=== PATIENT | female | born 1950 | race Asian ===

== ENCOUNTER 2019-06-30 03:23 | Inpatient (IN) | payer OTHER, BC ==
[~2019-06-30] VITALS: Ht 157.5 cm; Wt 67.1 kg
[2019-06-30] VITALS (71 sets, daily range): BP systolic 83–159; BP diastolic 59–98
--- NOTE | 2019-06-30 03:25 | NUR ---
BIBA TO BED #3
--- NOTE | 2019-06-30 03:30 | NUR ---
61 Y/O FEMALE BIBA C/O SZ. HAD TOTAL 4 EPISODES OF SZ. LAST ACT NORMAL WAS 3HRS AGO ACCORDING TO . UNKNOWN PMH. UNKNOWN ALLEGIES. 2.5MG OF VERSAD GIVEN AT AMBULANCE. ATIVAN 2MG IM ADMIN AT 0330. 22 GAUGE IV ON RIGHT HAND 0332. IO ON LEFT TIBIA LEG STARTED BY DR. CH AT 0335. ATIVAN 2MG IVP ADMIN AT 0336. ETOMIDATE 20MG ADMIN AT 0337. SUCC 120MG ADMIN AT 0338. INTUBATED 7.5 TUBE SIZE, 21CM AT LIPS AT 0341 BILAT CHEST SOUNDS NOTED, STAT XR ORDERED. OG TUBE APPLIED AT 0350. ERMD STARTING CENTRAL LINE AT 0350. PROFOLOL STARTED AT 0353. BP PRIOR IS 159/79. 5MCG/MIN. KEPPRA 1G STARTED ON RIGHT HAND AT 0358. RATE 220ML/HR IN 100ML BAG
[2019-06-30] MEDS ORDERED: LORazepam 2 MG/ML VIAL ONE (03:34)
--- NOTE | 2019-06-30 04:03 | NUR ---
CENTRAL LINE IN PLACED ON RIGHT IJ.
--- NOTE | 2019-06-30 04:04 | NUR ---
BLOOD COLLECTED FROM CENTRAL LINE.
[2019-06-30] MEDS ORDERED: NACL 0.9% 1,000 ML IV SCH (04:17)
[2019-06-30] MEDS ORDERED: VANCOMYCIN 1,000 MG in DEXTROSE 5% 250 ML IV ONE (04:20)
[2019-06-30] MEDS ORDERED: ETOMIDATE 20 MG/10 ML VIAL IVP ONE (04:20)
[2019-06-30] MEDS ORDERED: PIPERACILLIN/TAZOBACTAM 4.5 GM in DEXTROSE 5% 100 ML IV ONE (04:20)
[2019-06-30] MEDS ORDERED: SUCCINYLCHOLINE CHLORIDE 200 MG/10 ML VIAL IVP ONE (04:20)
[2019-06-30] MEDS ORDERED: LORazepam 2 MG/ML VIAL IVP ONE (04:20)
[2019-06-30] MEDS ORDERED: LORazepam 2 MG/ML VIAL IM ONE (04:20)
[2019-06-30] MEDS ORDERED: PROPOFOL 1000 MG/100 ML PREMIX 100 ML IV ONE (04:20)
[2019-06-30] MEDS ORDERED: levETIRAcetam 1,000 MG in NACL 0.9% 100 ML IV ONE (04:20)
--- NOTE | 2019-06-30 04:20 | NUR ---
BP 131/90. PROFOLOL AT 5MCG/MIN.
[2019-06-30] MEDS ORDERED: DEXT 5% / NACL 0.45% 1,000 ML IV SCH (04:49)
[2019-06-30] MEDS ORDERED: ONDANSETRON 4 MG/2 ML VIAL IVP PRN (04:50)
--- NOTE | 2019-06-30 05:00 | NUR ---
VALENCIA 16 FR INSERTED. 200CC OF CLEAR URINE CAME OUT.
[2019-06-30] MEDS ORDERED: PIPERACILLIN/TAZOBACTAM 2.25 GM VIAL IV ONE (05:24)
[2019-06-30 05:28] LABS: BASOPHILS % (AUTO) 0.4 % (0.0-2.0); EOSINOPHILS # (AUTO) 0.1 K/uL (0-0.4); EOSINOPHILS % (AUTO) 2.6 % (0.0-4.0); HEMATOCRIT 41.8 % (36-48); HEMOGLOBIN 12.7 g/dL (12.0-16.0); LYMPHOCYTES # (AUTO) 1.3 K/uL (2.5-16.5); LYMPHOCYTES % (AUTO) 29.9 % (20.5-51.1); MEAN CORPUSCULAR HEMOGLOBIN 22 pg (27-31); MEAN CORPUSCULAR HGB CONC 31 g/dL (33-37); MEAN CORPUSCULAR VOLUME 70.9 fL (80-94); MONOCYTES # (AUTO) 0.3 K/uL (0.8-1.0); MONOCYTES % (AUTO) 8.1 % (1.7-9.3); NEUTROPHILS # (AUTO) 2.5 K/uL (1.8-7.7); PLATELET COUNT (AUTO) 249 K/uL (140-450); RED CELL DISTRIBUTION WIDTH 15.3 % (11.6-13.7); WHITE BLOOD COUNT (AUTO) 4.2 K/uL (4.8-10.8)
[2019-06-30 05:32] LABS: APPEARANCE,URINE HAZY (CLEAR); BILIRUBIN,URINE 1+ (NEGATIVE); BLOOD, URINE TRACE-I (NEGATIVE); COLOR,URINE YELLOW (YELLOW); LEUKOCYTE ESTERASE ,URINE TRACE (NEGATIVE); NITRITE, URINE POSITIVE (NEGATIVE); UGLUCOSE NEGATIVE (NEGATIVE)
[2019-06-30 05:47] LABS: ANION GAP 14.9 (8-16); CARBON DIOXIDE 28.1 mmol/L (21-32); CREATININE 0.8 mg/dL (0.6-1.3)
[2019-06-30] MEDS ORDERED: VANCOMYCIN 1,000 MG VIAL ONE (05:52)
[2019-06-30] MEDS ORDERED: POTASSIUM CHL 40 MEQ/ D5-1/2NS 1,000 ML IV ONE (06:00)
[2019-06-30] MEDS ORDERED: MAG SULF 2000 MG/WATER PREMIX 50 ML IV ONE (06:00)
[2019-06-30 06:04] LABS: ALBUMIN 2.3 g/dL (3.4-5.0); AMYLASE 109 U/L (25-115); ANION GAP 13.3 (8-16); ASPARTATE AMINOTRANSFERASE 20 U/L (15-37); CARBON DIOXIDE 28.7 mmol/L (21-32); CHLORIDE 106 mmol/L (98-107); CREATININE 0.8 mg/dL (0.6-1.3); GFR ARICAN-AMERICAN 92 mL/min (>90); GLUCOSE 132 mg/dL (74-106); LIPASE 431 U/L (73-393); RBC,URINE 0-5 /HPF (0-5); SODIUM SERUM 146 mmol/L (136-145); TOTAL BILIRUBIN 0.4 mg/dL (0.0-1.0); UREA NITROGEN, BLOOD 12 mg/dL (7-18)
--- NOTE | 2019-06-30 06:07 | NUR ---
PT TAKEN TO CT WITH RT AND RN ON [facility] HOOKED UP TO TRANSPORT MONITOR
[2019-06-30 06:10] LABS: PHENYTOIN (DILANTIN) < 0.5 ug/ml (10.0-20.0); SALICYLATE < 2.8 mg/dL (2.8-20.0)
[2019-06-30 06:11] LABS: ACETAMINOPHEN < 0.5 ug/ml (10-30)
[2019-06-30 06:13] LABS: CREATINE KINASE MB 0.9 ng/mL (0-3.6); PROTHROMBIN TIME 10.4 secs (10.8-13.4)
[2019-06-30 06:26] LABS: PHENOBARBITAL < 1 ug/ml (15-40)
[2019-06-30] MEDS ORDERED: GABA300C PO (06:42)
[2019-06-30] MEDS ORDERED: ROSU10TA1 PO (06:42)
[2019-06-30] MEDS ORDERED: CLON2TAB PO (06:42)
[2019-06-30] MEDS ORDERED: BACL10TA4 PO (06:42)
--- NOTE | 2019-06-30 06:50 | NUR ---
XR CONFIRM NGT [PLACEMENT. STARTED ON LOW INTERMITTENT SUCTION.
[2019-06-30 06:55] LABS: CHOL/HDL RATIO 5.6 (1-4.5); MAGNESIUM 1.6 mg/dL (1.8-2.4); PHOSPHORUS 2.5 mg/dL (2.5-4.9); THYROID STIMULATING HORMONE 3.23 uIU/mL (0.34-3.74)
[2019-06-30] MEDS ORDERED: PRED20TA5 PO (07:08)
[2019-06-30] MEDS ORDERED: HYDR-5122 PO (07:08)
--- NOTE | 2019-06-30 07:20 | NUR ---
Patient will be admitted to care of DR. PALACIO. Admited to ICU . Will go to room 5. Belongings list completed. Report to JAVY MEDEROS.
--- NOTE | 2019-06-30 07:37 | NUR ---
ADMITTED PT FROM ER TO ICU BY ITALO. PT CLOSED EYES. BEDSIDE MONITOR SHOWS ST 115S. PT ETT TO VENT WITH SETTING FIO2 30%. PUPILS REACTIVE. GAG REFLEX PRESENT. PT HAS CENTRAL LINE TO [facility] TLC RUNNING PROPOFOL AT 5 MCG/KG/ MIN BASED ON DRY WEIGHT 65.7 KG, RASS-3. D5 1/2 NS KCL 40 MEQ AT 100 CC/HR AND VACOCIN 1G IN D5 @ 165 CC/HR. PT HAS NG TUBE TO RIGHT NARES, F/C IN PLACE WITH YELLOW URINE NOTED. PT UNABLE TO MOVE HER EXTREMITIES. RIGHT FOOT DROP NOTED. HOB ELEVATED IN 30 DEGREES . WILL CONTINUE TO MONITOR. Addendum: 06/30/19 at 1352 by Justa Servin RN 5 MCG/KG/ MIN=1.97 CC/HR
[2019-06-30] MEDS ORDERED: LORazepam 2 MG/ML VIAL IM/IVP PRN (08:10)
[2019-06-30] MEDS: DEXT 5% /NACL 0.9% 1,000 ML IV SCH ×2 (08:10→21:18)
[2019-06-30 08:28] LABS: BARBITURATE, URINE NEG. ng/ml (NEG <=200); BENZODIAZEPINE, URINE POS. ng/mL (NEG <=200); CANNABINOID, URINE NEG. ng/mL (NEG <=50); COCAINE, URINE NEG. ng/mL (NEG <=300); OPIATE, URINE NEG. ng/mL (NEG <=2000); PHENCYCLIDINE SCREEN,URINE NEG. ng/mL (NEG <=25)
[2019-06-30] MEDS ORDERED: KCL 20 MEQ/WATER INJ PREMIX 200 ML IV SCH ×2 (08:45→16:40)
--- NOTE | 2019-06-30 09:00 | NUR ---
REMOVED IO TO LEFT KNEE, TIP INTACT. COVERED WITH BANDAGE.
[2019-06-30] MEDS: DOCUSATE SODIUM 100 MG GELCAP PO SCH ×2 (10:05→21:00)
[2019-06-30] MEDS: FAMOTIDINE 20 MG TAB PO SCH (10:06)
[2019-06-30] MEDS: ATORVASTATIN 20 MG TAB PO SCH (10:06)
--- NOTE | 2019-06-30 10:40 | NUR ---
NOTIFIED PT DOES NOT HAVE DVT PROPHYLAXIS BUT PT HAS SCDs IN PLACE. DR. GOODMAN STATED SCDs are fine.
[2019-06-30 10:46] LABS: PROTHROMBIN TIME 10.2 secs (10.8-13.4)
[2019-06-30] MEDS: PIPERACILLIN/TAZOBACTAM 3.375 GM in DEXTROSE 5% 50 ML IV SCH ×3 (11:25→23:19)
--- NOTE | 2019-06-30 12:02 | NUR ---
PATIENT HAS BEEN SCREENED AND CATEGORIZED HIGH NUTRITION RISK. PATIENT WILL BE SEEN WITHIN 1-2 DAYS OF ADMISSION. 07/01/2019 VIKY YA MBA, RD
--- NOTE | 2019-06-30 13:37 | NUR ---
CALLED CT [phone], NO RESPONSE.
--- NOTE | 2019-06-30 13:58 | NUR ---
06/30/2019 RD INITIAL ASSESSMENT COMPLETED PLEASE REFER TO NUTRITION ASSESSMENT UNDER CARE ACTIVITY FOR ESTIMATED NUTRITIONAL NEEDS. RD RECOMMENDATIONS: 1. RECOMMEND TF VITAL AF 1.2@50MLS/HR (PROVIDES 1440KCALS, 90G PROTEIN - SUFFICIENT TO MEET 100% ESTIMATED NEEDS). 2. RECOMMEND START TF VITAL AF 1.2@30MLS/HR AND ADVANCE, TOLERATED, BY 10MLS/HR Q8HRS TO REACH GOAL RATE OF 50MLS/HR. 3. RECOMMEND WATER FLUSH OF 100MLS Q6HRS 4. FOLLOW UP 2-3 DAYS; HIGH RISK VIKY YA MBA, RD
[2019-06-30 14:35] LABS: ANION GAP 10.3 (8-16); CARBON DIOXIDE 27.9 mmol/L (21-32); CREATININE 0.7 mg/dL (0.6-1.3)
[2019-06-30 14:44] LABS: POTASSIUM 2.2 mmol/L (3.5-5.1)
--- NOTE | 2019-06-30 15:12 | NUR ---
DR. PATTON NEUROLOGIST AT BEDSIDE TO CHECK PT. UPDATED PT'S CONDITION. RT JOSEPH ALSO AT BEDSIDE. STARTED SEDATION VACATION. PER PT IS VERY CALM AFTER PROPOFOL TURNED OFF. SO WE JUST WAIT FOR EEG, WHEN EEG DONE, IF REPORT SHOWS NORMAL. THEN WE TURN OFF PROPOFOL, WILL CARRY OUT.
--- NOTE | 2019-06-30 15:30 | NUR ---
DR. PATTON AND DR. NEAL HAD CONVERSATION REGARDING CT REPORT. NOTIFIED DR. NEAL PT HAS URINE OUTPUT 300 CC SO FAR.
--- NOTE | 2019-06-30 15:43 | NUR ---
CALLED CT [phone], NO ANSWER.
--- NOTE | 2019-06-30 16:30 | NUR ---
LEFT UNIT AT 1600 AND CAME BACK AT [address] WITHOUT INCIDENT. ACCOMPANIED WITH RT, PARTS WASHER AND RN.
[2019-06-30] MEDS ORDERED: LIDOCAINE 2% 100 MG/5 ML SYR IVP ONE (18:15)
--- NOTE | 2019-06-30 18:20 | NUR ---
LIDOCAINE 2% 5 CC WAS GIVEN BY FOR CHEST TUBE INJECTION.
--- NOTE | 2019-06-30 18:25 | NUR ---
MD FROM ER STARTED TO INSERT CHEST TUBE.
--- NOTE | 2019-06-30 19:02 | NUR ---
Received pt stable on vent support at documented settings, suctioned small thick white yellow secretions, no resp distress or SOB noted at this time, found 7.5 ETT secured at 23 cm at the lip, alarms set and audible, ambu bag at bedside, vent wiped down and plugged into red outlet, cont pulse ox on, will cont to monitor.
--- NOTE | 2019-06-30 19:15 | NUR ---
rt at bedside. notified him that patient has dried blood around mouth and ng tube has small amount of fresh blood in suction tube and in right nares. softly placed inch of suction into mouth orally . will continue to monitor. when deep suctioned , no blood noted.
--- NOTE | 2019-06-30 19:19 | NUR ---
ENDORSED PT TO PM SHIFT RN.
--- NOTE | 2019-06-30 19:20 | NUR ---
change of shift report given at bedside by day nurse. ett to vent. settings [id number]. dry weight 65.7kg. rass -3. patient sedated on propofol 5mcg/kg/min (1.95ml/hr) through right ij central line triple lumen. fluids running is d5 ns 80 ml /hr when endorsed. ng via right nares. attached to vital af 1.2 20 with h20 flush 50 q4h per day shift nurse. states replaced potassium. chest tube inserted right side 30 minutes ago. ativan given. states foot drop. ct done. xray done. states no pe. on regular suction. lungs diminished. regular hr. bowel sounds active all 4 quad. f/c scds present. perrl brisk rxn. afebrile. -. [facility] specialist saw patient. bp low. will continue to monitor. no sob or distress noted.
--- NOTE | 2019-06-30 20:59 | NUR ---
called resident jose x2 about colace being po and patient intubated. will continue to f/u. held at this time.
[2019-06-30] MEDS: levETIRAcetam 1,000 MG in NACL 0.9% 100 ML IV SCH (21:14)
--- NOTE | 2019-06-30 22:25 | NUR ---
lab at bedside
[2019-06-30 22:51] LABS: ANION GAP 11.5 (8-16); CARBON DIOXIDE 27.3 mmol/L (21-32); CREATININE 0.8 mg/dL (0.6-1.3)
[2019-06-30 22:59] LABS: POTASSIUM 1.8 mmol/L (3.5-5.1)
--- NOTE | 2019-06-30 22:59 | NUR ---
potassium called from .8. notified jose [phone]. replacement ordered. will follow up. notified that i tried calling her x2 about the gel colace capsule. states ok to hold.
[2019-06-30] MEDS ORDERED: KCL 20 MEQ/WATER INJ PREMIX 200 ML IV ONE (23:30)
[2019-07-01] VITALS (106 sets, daily range): BP systolic 80–120; BP diastolic 51–88
--- NOTE | 2019-07-01 00:30 | NUR ---
charge nurse took influe a and b swab and given to lab
--- NOTE | 2019-07-01 00:34 | NUR ---
called md about low bp in sbp in 80s-90s. no answer. will continue to call back.
--- NOTE | 2019-07-01 00:54 | NUR ---
jose at bedside. notified of low bp. eyes open to md. asked if we should keep sbp above a level or monitor MAP above 60? md states MAP is better to monitor. will continue to monitor.
--- NOTE | 2019-07-01 02:30 | NUR ---
dr garcia came per sienna nurse at bedsides and gave charge nurse orders while on lunch break. will f/u with charge nurse. chagre nurse started ns bolus. will continue to monitor.
[2019-07-01] MEDS ORDERED: NACL 0.9% 1,000 ML IV ONE (03:05)
--- NOTE | 2019-07-01 04:45 | NUR ---
patient given morning care. skin dry and had dried dirt present. cleaned patient with charge nurse. patient had catheter care and changed patients bandage/secured more of chest tube dressing . clamps at bedside. no leaking noted. patient tolerated well. oral care given. afebrile. no sob or s/s of distress noted. patient lying in bed. sedated. no injury noted. bed changed.
--- NOTE | 2019-07-01 05:34 | NUR ---
lab at bedside
[2019-07-01] MEDS: PIPERACILLIN/TAZOBACTAM 3.375 GM in DEXTROSE 5% 50 ML IV SCH ×3 (05:55→17:24)
--- NOTE | 2019-07-01 07:16 | NUR ---
endorsed to day shift to f/ u with md about eeg. same nurse following from yesterdays day shift. states specialist did not need feel it was necessary to do eeg per day shift nurse. asked nurse to f/u. endorsed critical k 1.8 and replaced. lab drawn. endorsed dry skin. cleaned and changed bed and bandage.
[2019-07-01 07:21] LABS: BASOPHILS % (AUTO) 0.1 % (0.0-2.0); EOSINOPHILS % (AUTO) 0.3 % (0.0-4.0); HEMATOCRIT 33.5 % (36-48); HEMOGLOBIN 10.3 g/dL (12.0-16.0); LYMPHOCYTES # (AUTO) 1.6 K/uL (2.5-16.5); LYMPHOCYTES % (AUTO) 17.9 % (20.5-51.1); MEAN CORPUSCULAR HEMOGLOBIN 22 pg (27-31); MEAN CORPUSCULAR HGB CONC 31 g/dL (33-37); MEAN CORPUSCULAR VOLUME 70.1 fL (80-94); MONOCYTES # (AUTO) 0.6 K/uL (0.8-1.0); MONOCYTES % (AUTO) 6.7 % (1.7-9.3); NEUTROPHILS # (AUTO) 6.8 K/uL (1.8-7.7); PLATELET COUNT (AUTO) 192 K/uL (140-450); RED BLOOD CELL COUNT(AUTO) 4.78 MIL/uL (4.20-5.40); RED CELL DISTRIBUTION WIDTH 15.4 % (11.6-13.7); WHITE BLOOD COUNT (AUTO) 9.1 K/uL (4.8-10.8)
--- NOTE | 2019-07-01 07:25 | NUR ---
RECEIVED REPORT FROM PM SHIFT. BEDSIDE MONITOR SHOWS SR 90S, PUPILS ACTIVE. ETT TO VENT WITH SETTING FIO2=30%, TV 400, AC 14, PEEP 5. O2 SATS 100 %, NO S/S OF RESPIRATORY DISTRESS NOTED. PT HAS CENTRAL LINE TO RIGHT IJ TLC WITH PROPOFOL AT 5 MCG/KG/MIN BASED ON DRY WEIGHT 65.7 KG, RASS -3. PT OPENS EYES WHEN ASSESS PT BUT FALL ASLEEP IMMEDIATELY. PT ALSO HAS IV FLUID D5 0.9 NS AT 100 CC/HR. CHEST TUBE IN PLACE, F/C IN PLACE. SCD IN PLACE, PT HAS EDEMA TO BOTH LOWER AND UPPER EXTREMITIES. WILL CONTINUE TO MONITOR.
--- NOTE | 2019-07-01 07:25 | NUR ---
rec'd pt on carescape vent setting ac 14 vt400 peep 5 fio2 30% alarms on and audible and ambu bag at hob vent is plugged into red outlet, sxn pt scant amt of thin clear secetions, b\s are clear bilaterally, pt is orally intubated with 7.5 et tube secured with anchor fast at 23cm pt is resting
[2019-07-01 07:29] LABS: ANION GAP 12.5 (8-16); CREATININE 0.7 mg/dL (0.6-1.3)
[2019-07-01 07:36] LABS: MAGNESIUM 1.7 mg/dL (1.8-2.4); PHOSPHORUS 1.2 mg/dL (2.5-4.9)
[2019-07-01 07:47] LABS: POTASSIUM 2.5 mmol/L (3.5-5.1)
--- NOTE | 2019-07-01 08:00 | NUR ---
tube feeding residual checked, zero. pt on vital AF 1.2 AT 20 CC/HR. INCREASED TO 30 CC/HR. PLACEMENT CONFIRMED.
[2019-07-01] MEDS: FAMOTIDINE 20 MG TAB PO SCH (08:53)
[2019-07-01] MEDS: ATORVASTATIN 20 MG TAB PO SCH (08:53)
[2019-07-01] MEDS: DOCUSATE SODIUM 100 MG GELCAP PO SCH ×2 (08:53→21:00)
[2019-07-01] MEDS ORDERED: POTASSIUM PHOSPHATE 15 MM in NACL 0.9% 250 ML IV SCH (09:00)
[2019-07-01] MEDS ORDERED: MAG SULF 2000 MG/WATER PREMIX 100 ML IV SCH (09:00)
[2019-07-01 09:06] LABS: HEPATITIS A ANTIBODY IGM Negative (Negative); HEPATITIS B CORE AB TOTAL Negative (Negative); HEPATITIS B SURFACE ANTIBODY Reactive (.); HEPATITIS B SURFACE ANTIGEN Negative (Negative)
--- NOTE | 2019-07-01 09:11 | NUR ---
RT AGRAWAL TOLD ME THE EET TECH WILL BE HERE BEFORE NOON. CHARGE NURSE MADE AWARE.
[2019-07-01] MEDS: levETIRAcetam 1,000 MG in NACL 0.9% 100 ML IV SCH (09:18)
[2019-07-01] MEDS: PROPOFOL 1000 MG/100 ML PREMIX 100 ML IV PRN (09:21)
--- NOTE | 2019-07-01 09:30 | NUR ---
NOTIFIED DR. NEAL PT HAS EDEMA, DR. NEAL DECREASED IVF FROM 100 CC/HR TO 30 CC/HR. CARRIED OUT. ALSO DOUBLE CHECK WITH DR. NEAL REGARDING PT'S BP. PER DR. NEAL KEEP MAP > OR = 65 IS FINE.
--- NOTE | 2019-07-01 10:54 | NUR ---
UNIVERSAL BRANCH CONSULTANT AT BEDSIDE.
[2019-07-01] MEDS ORDERED: KCL 20 MEQ/WATER INJ PREMIX 200 ML IV SCH ×3 (12:00→22:00)
--- NOTE | 2019-07-01 12:30 | NUR ---
DR. PATTON AND DR. GOODMAN AT BEDSIDE TO TALK TO PT'S .
--- NOTE | 2019-07-01 12:30 | NUR ---
DR. GOODMAN AT BEDSIDE CHANGED TO CPAP 5 PS 15 LEAVE FOR 2HOURS THEN DECREASE PS TO 12 WEANING EXERCISE FOR NOW
--- NOTE | 2019-07-01 12:35 | NUR ---
OK TO GIVE PT TUBE FEEDING VITAL AF 1.2 START WITH 30 CC/HR AND INCREASE TO GOAL 50 CC/HR IF PT TOLERATED WELL. 50 CC WATER FLUSH Q4H DUE TO PT HAS EDEMA.
--- NOTE | 2019-07-01 12:54 | NUR ---
PT FAILED CPAP MODE LOW RR OF 6 PLACED BACK ON AC MODE JAVY MEDEROS NOTIFIED
[2019-07-01 14:01] LABS: ANION GAP 12.8 (8-16); CARBON DIOXIDE 24.4 mmol/L (21-32); CREATININE 0.6 mg/dL (0.6-1.3)
[2019-07-01 14:05] LABS: POTASSIUM 2.2 mmol/L (3.5-5.1)
--- NOTE | 2019-07-01 14:10 | NUR ---
RECEIVED CRITICAL REPORT K LEVEL 2.2, REPORTED TO RESIDENT OFFICE DR. MONTELONGO AND ALSO NOTIFIED PT IS ON K-RIDER.
[2019-07-01] MEDS: DEXT 5% /NACL 0.9% 1,000 ML IV SCH (16:40)
--- NOTE | 2019-07-01 18:09 | NUR ---
PT OPENS EYES MORE THAN 10 SECONDS. CALLED RESIDENT OFFICE, TALKED TO DR. MONTELONGO REGARDING INCREASING PROPOFOL. MDs PLANED TO EXTUBATE PT SO THEY DO NOT WANT TO GIVE PT MORE SEDATION. PT IS ON 5 MCG/KG/MIN, DR. MONTELONGO CALLED DR. NEAL. PER DR. MONTELONGO " OK TO INCREASE PROPOFOL TO 10 MCG/KG/MIN". CARRIED OUT.
--- NOTE | 2019-07-01 18:41 | NUR ---
DR. IBARRA AT BEDSIDE TO ASSESS PT. UPDATED PT'S SITUATION. INCREASED TUBE FEEDING TO 40 CC/HR. RESIDUAL NONE. PLACEMENT CHECKED .
[2019-07-01] MEDS ORDERED: MORPHINE SULFATE 2 MG/ML SYR IVP SCH (18:55)
--- NOTE | 2019-07-01 18:58 | NUR ---
RECEIVED PATIENT FROM DAY SHIFT ON AC 14,400,+5,30%. VENT PLUGGED INTO RED OUTLET. ALARMS AUDIBLE AND WORKING. BMV AT HEAD OF BED. ETT SECURED AT 7.5@ 23 AT THE GUM W/ ANCHOR FAST IN PLACE. PT IS IN NO DISTRESS. WILL CONT TO MONITOR.
--- NOTE | 2019-07-01 19:15 | NUR ---
CHANGE OF SHIFT REPORT GIVEN BY DAY NURSE ROSA M. VITAL AF 1.2 TUBE FEEDING AT RATE OF 40 WITH WATER FLUSH 50 Q4H. PATIENT HAS EDEMA ON HANDS AND FEET. IVF RUNNING D5 NS AR 30ML/HR. NURSE STATES EEG WAS DONE. PROPOFOL AT 10 MCG/KG/MIN. RASS-3. DRY WEIGHT 65.7KG. PERRL BRISK RXN. LUNGS CLEAR. SYMMETRICAL RESP. HR REGULAR. SKIN INTACT. F/C PRESENT/ R CHEST TUBE INTACT. RIGHT IJ CENTRAL LINE INTACT. PATIENT DENIES PAIN. AWARE TO NAME. SCDS PRESENT. [id number] ON VENT SETTING. ETT TO VENT. POTASSIUM RUNNING PER MD ORDERS. CHEST TUBE CONNECTED TO SUCTION. NO OUTPUT. CENTRAL LINE DRESSING INTACT. PATIENT STATES NO PAIN. ABLE TO MAKE MOST NEEDS KNOWN. DRIED BLOOD STILL AROUND MOUTH. PER SAY SHIFT, STATES D/T SZ, BITE TO MOUTH. NO OTHER BLEEDING NOTED. DRY SKIN NOTED. WILL CONTINUE TO MONITOR AT THIS TIME. sBP RUNNING IN 90s 80s. md has been made aware. will continue to monitor at this time. standard precaution at this time. rt at bedside.
[2019-07-01 20:22] LABS: ANION GAP 13.2 (8-16); CARBON DIOXIDE 24.7 mmol/L (21-32); CREATININE 0.6 mg/dL (0.6-1.3)
[2019-07-01 20:28] LABS: POTASSIUM 2.9 mmol/L (3.5-5.1)
--- NOTE | 2019-07-01 20:31 | NUR ---
PATIENT HAS CRITICAL LAB VALUE NOTIFIED BY OWEN FROM LAB POTASSIUM 2.9 PATIENT HAS POTASSIUM BAGS HANGING AT THIS TIME. MD IBARRA NOTIFIED AT THIS TIME. POTASSIUM TRENDING UP. WILL CONTINUE TO MONITOR. VSS. NO SOB OR DISTRESS NOTED. PATIENT DENIES PAIN AT THIS TIME.
--- NOTE | 2019-07-01 21:00 | NUR ---
MEDICATION GIVEN PER MD ORDERS. PT HELD COLACE D/T NOT BEING ABLE TO TAKE PO. MD AWARE. PATIENT HAS BM DAILY. VSS. NO SOB OR DISTRESS NOTED.
[2019-07-01] MEDS: levETIRAcetam 1,500 MG in NACL 0.9% 100 ML IV SCH (21:15)
--- NOTE | 2019-07-01 23:26 | NUR ---
LAB CALLED. SPOKE WITH CHARGE NURSE. STATES BLOOD CULTURE RESULTED. GRAM + COCCI IN CLUSTERS. CALLED DR IBARRA AT [phone] TO NOTIFY. ALSO NOTIFIED X2 THAT PATIENT HAS PO ORDER FOR COLACE WHEN ETT TO VENT AND SEDATED ON PROPOFOL AND NG TUBE SO HELD COLACE. ALSO STATED PATIENT HAS HAD DAILY SOFT BOWEL MOVEMENTS. "OK THANK YOU BYE"
[2019-07-02] VITALS (95 sets, daily range): BP systolic 78–139; BP diastolic 45–95
--- NOTE | 2019-07-02 | NUR ---
MEDICATION GIVEN PER MD ORDERS. PATIENT DENIES PAIN. ORAL CARE GIVEN. AFEBRILE.VSS. NO SOB OR DISTRESS NOTED.
[2019-07-02] MEDS: PIPERACILLIN/TAZOBACTAM 3.375 GM in DEXTROSE 5% 50 ML IV SCH ×5 (00:04→23:11)
--- NOTE | 2019-07-02 01:30 | NUR ---
PATIENT BED CHANGED. CATHETER CARE. BED BATH. ORAL CARE. WITH CHARGE NURSE. PATIENT ASSISTED. STATES NO PAIN. CHEST TUBE INTACT AND NG IN PLACE PER AUSCULTATION. FEEDING BACK ON. NO SOB OR DISTRESS NOTED. WILL CONTINUE TO MONITOR.
--- NOTE | 2019-07-02 05:00 | NUR ---
PATIENT HAD 2ND BM TONIGHT. CLEANED. CATHETER CARE PERFORMED. BED SHEET CHANGED. PATIENT ASSISTED. DENIES PAIN. CHEST TUBE INTACT. VSS. NO SOB OR DISTRESS NOTED. CLAMP AT BEDSIDE. WILL CONTINUE TO MONITOR.
[2019-07-02 05:59] LABS: BASOPHILS % (AUTO) 0.2 % (0.0-2.0); EOSINOPHILS # (AUTO) 0.1 K/uL (0-0.4); HEMATOCRIT 28.2 % (36-48); HEMOGLOBIN 8.8 g/dL (12.0-16.0); LYMPHOCYTES # (AUTO) 1.3 K/uL (2.5-16.5); MEAN CORPUSCULAR HEMOGLOBIN 22 pg (27-31); MEAN CORPUSCULAR HGB CONC 31 g/dL (33-37); MEAN CORPUSCULAR VOLUME 69.6 fL (80-94); MONOCYTES # (AUTO) 0.6 K/uL (0.8-1.0); MONOCYTES % (AUTO) 7.1 % (1.7-9.3); NEUTROPHILS # (AUTO) 6.7 K/uL (1.8-7.7); NEUTROPHILS % (AUTO) 76.7 % (42.2-75.2); PLATELET COUNT (AUTO) 149 K/uL (140-450); RED BLOOD CELL COUNT(AUTO) 4.05 MIL/uL (4.20-5.40); RED CELL DISTRIBUTION WIDTH 15.2 % (11.6-13.7); WHITE BLOOD COUNT (AUTO) 8.7 K/uL (4.8-10.8)
[2019-07-02 06:03] LABS: ANION GAP 12.7 (8-16); CARBON DIOXIDE 24.7 mmol/L (21-32); CREATININE 0.5 mg/dL (0.6-1.3); MAGNESIUM 2.3 mg/dL (1.8-2.4); PHOSPHORUS 1.8 mg/dL (2.5-4.9); POTASSIUM 3.4 mmol/L (3.5-5.1)
--- NOTE | 2019-07-02 06:25 | NUR ---
RECEIVED PT ON CARESCAPE ON DOCUMENTED SETTINGS, ALARMS ARE ON AND AUDIBLE, PTS ETT IS SECURE [address] IN [address], BS CLEAR, PT IN HF AWAKE, BMV HOB, VENT PLUGGED INTO RED OUTLET, WILL CONTINUE TO MONITOR
--- NOTE | 2019-07-02 07:25 | NUR ---
PATIENT IN STABLE CONDITION. NO SOB OR DISTRESS NOTED. ENDORSED TO DAY SHIFT.
--- NOTE | 2019-07-02 07:26 | NUR ---
RECEIVED BEDSIDE REPORT FROM SMALL PRODUCTS I ASSEMBLER NURSE, PT IS SEDATED RASS -1, UNABLE TO FOLLOW COMMANDS, VSS, FLACC 0, NO S/S OF DISTRESS, ETT TO VENT WITH FIO2 30 VT 400 R 14, PEEP 5, CLEAR LUNG SOUND TO LEFT, DIMINISHED TO RIGHT, RIGHT CHEST TUBE IN PLACE WITH LOW WALL SUCTION, NO LEAKING NOTED, ST ON ASSEMBLER ARRANGER, CAP REFILL <2 SEC, +2 PITTING EDEMA TO DAVID. HANDS AND FEET NOTED, SOFT ABDOMEN WITH ACTIVE BOWEL SOUNDS, NGT TO RIGHT NARES, POSITIVE PLACEMENT CHECKED, FEEDING WITH VITAL AF AT 40 ML/HR, VALENCIA CATHETER IN PLACE WITH CLEAR YELLOW URINE VIA GRAVITY, GENERALIZED WEAKNESS TO ALL EXTREMITIES, SCD IN PLACE, SKIN IS WARM AND DRY TO TOUCH, INTACT, CENTRAL LINE TO [facility], PATENT, RUNNING PROPOFOL AT 10 MCG/KG/MIN, AND D5 NS AT 30 ML/HR. HOB ELEVATED TO 30 DEGREES, SAFETY MEASURES AND SEIZURE PRECAUTION IN PLACE, WILL CONTINUE TO MONITOR. Addendum: 07/02/19 at 1035 by Johan Casillas RN DRY WEIGHT USING ON PUMP FOR PROPOFOL IS 65.7KG, PER REPORT RASS SCORE NOT MET TO GOAL DUE TO MD WOULD LIKE TO KEEP HER LIGHT SEDATED AT THIS TIME. WILL FOLLOW UP WITH .
--- NOTE | 2019-07-02 08:00 | NUR ---
ORAL CARE PROVIDED, PATIENT TOLERATED WELL, NGT CHECKED WITH 0 ML RESIDUALS, TUBE FEEDING RATE CHANGED TO 50 ML/HR AT THIS TIME.
[2019-07-02] MEDS: DEXT 5% /NACL 0.9% 1,000 ML IV SCH (08:06)
[2019-07-02] MEDS: PROPOFOL 1000 MG/100 ML PREMIX 100 ML IV PRN (08:11)
--- NOTE | 2019-07-02 08:30 | NUR ---
PROPOFOL HELD AT THIS TIME FOR SEDATION VACATION, RT MADE AWARE.
--- NOTE | 2019-07-02 09:00 | NUR ---
PT IS MORE ALERT AND AWAKE, ABLE TO ANSWER SIMPLE QUESTIONS BY KNOCKING HEAD, SCHEDULED MEDICATION GIVEN VIA NG TUBE, PT TOLERATED WELL.
[2019-07-02] MEDS: FAMOTIDINE 20 MG TAB PO SCH (09:01)
[2019-07-02] MEDS: ATORVASTATIN 20 MG TAB PO SCH (09:02)
[2019-07-02] MEDS: levETIRAcetam 1,500 MG in NACL 0.9% 100 ML IV SCH ×2 (09:02→20:39)
[2019-07-02] MEDS: DOCUSATE SODIUM 100 MG GELCAP PO SCH ×2 (09:02→20:40)
[2019-07-02] MEDS ORDERED: KCL 20 MEQ/WATER INJ PREMIX 200 ML IV SCH (09:30)
--- NOTE | 2019-07-02 10:00 | NUR ---
PATIENT IS RESTING IN BED, NO S/S OF DISTRESS, VSS, DENIES PAIN, POSITION CHANGED FOR OFF LOAD PRESSURE.
--- NOTE | 2019-07-02 11:35 | NUR ---
Ccie Note: Per patient's Pillo Sanders , he would like to meet with me in person for assessment, he stated he will call me once he is here. Patient is currently intubated.
--- NOTE | 2019-07-02 12:30 | NUR ---
PER RT MANUEL, TRIED TWO TIME OF WEANING, PATIENT ONLY TOLERATED 30 MINS FOR EACH TIME, MD AWARE, PATIENT IS FULLY AWAKE, BACK ON SEDATION, WILL CONTINUE TO MONITOR.
--- NOTE | 2019-07-02 12:32 | NUR ---
PT FAILED TWO 30 MINUTE SBT TRIALS LOW RR, VT
--- NOTE | 2019-07-02 13:13 | NUR ---
DR. CHANG CAME IN TO SEE PATIENT AT BEDSIDE, UPDATED PATIENT'S CONDITION, STATED TREAT SEIZURE FIRST, WEANING COULD WAIT.
--- NOTE | 2019-07-02 14:00 | NUR ---
PATIENT IS RESTING IN BED, TRYING TO PULL OUT ETT TUBE AGAIN, REEDUCATED, PATIENT IS AGITATED, PLACED PATIENT ON MITTEN AT THIS TIME.
--- NOTE | 2019-07-02 15:35 | NUR ---
MANAGER OF PROCUREMENT SPOKE TO PATIENT'S AT BEDSIDE, PT'S WOULD LIKE TO SIGN A NEW POLST CARD, DR. SHANNON SIGNED THE CARD.
--- NOTE | 2019-07-02 16:00 | NUR ---
PM CARE AND VALENCIA CATHETER PROVIDED, ORAL CARE PROVIDED, POSITION CHANGED FOR OFF LOAD PRESSURE.
--- NOTE | 2019-07-02 17:19 | NUR ---
AMAURY assessment/discharge plan High Risk DC Screen Yes Name: Pillo Sanders Home Relationship: Pre-Admission Living Arrangements: Lives with Other Other: Pillo Sanders Prior ADL Needs Assistance Current / Name/Tel: wheelchair Healthcare Decision Maker: Next of Kin Other: Pillo Sanders Information Taught: Community Resources Person Taught: Spouse Teaching Tools: Community Resources Verbal Factors Affecting Learning: None Participation Level: Active Evaluation: Gestures Understanding Verbalizes Understanding Educator: AMAURY Cartagena Tentative Discharge Plan Summary: Patient is a 69 year old female with a PMH of Chronic Inflammatory Demyelinating Polyneuropathy and Crohns Disease. I met with patient and patient's Pillo Sanders at bedside. Patient is intubated at this time. Patient lives at home with Pillo. He stated patient was at [facility] about 3 months ago for physical therapy. He reported patient became bedbound and he is having difficulty taking care of patient and requested community resources for this. He told me patient does not qualify for [facility] due to high income. I told him he has the option of paying for a private caregiver if he can afford to. He verbalized understanding. He told me he is unsure how he will be able to take patient to doctor's office. I advised him to check with patient's health insurance if they can assist with providing transportation to pcp's office (Rogelio Maravilla). He told me patient wanted to be DNR, was made aware of this and discussed POLST with Pillo. I provided Pillo with education on [facility] www.[employer].org for community resources including home care. Discharge plan will be based on attending MD's recommendation and Pillo's choice. [employer] Executive Director and/or [employer] will follow up as needed. Signature: AMAURY Cartagena Date: Jul 02, 2019
--- NOTE | 2019-07-02 18:00 | NUR ---
PATIENT HAD TWO LOSE STOOL, AND TOTAL FOUR LOSE STOOL SINCE LAST NIGHT, DR. RENO MADE AWARE, COLLECTED STOOL FOR C-DIFF, AND SENT TO LAB, REPOSITION FOR OFF LOAD PRESSURE.
[2019-07-02] MEDS ORDERED: Z-GUARD PASTE TP ONE ×2 (18:07→18:25)
--- NOTE | 2019-07-02 19:00 | NUR ---
PT AWAKE X1, ABLE TO RESPOND TO VERBAL AND TACTILE STIMULI, NODS TO YES OR NO QUESTIONS. BILATERAL PUPILS REACTIVE TO LIGHT AND ACCOMMODATION. NO SIGNS OF ACUTE DISTRESS, WITH ETT FIO2 AT 30%, PEEP 5 TV 400 RATE 14. ELEVATE HOB AT LEAST 30 DEGREES. CHEST TUBE NOTED ON RIGHT SIDE, ON LOW REGULAR SUCTION, NO AIR LEAKS NOTED, TIDALING PRESENT. ORAL CARE PROVIDED WITH SUCTION. DENIES OF ANY PAIN AT THIS TIME. NOTED WITH NG TUBE WITH FEEDING ON RIGHT NARES, PLACEMENT CHECKED, NO RESIDUAL AT THIS TIME. SKIN IS WARM AND DRY, TURN AND REPOSITION Q2H, VALENCIA CATHETER IN PLACE, NOTED CLEAR YELLOW URINE, NOTED ARELY AREA WITH REDNESS, ARELY AND VALENCIA CARE PROVIDED. INCONTINENT OF BOWEL, NO EPISODE OF LOOSE STOOL AT THIS TIME. MAINTAIN SAFETY PRECAUTIONS, ALL NEEDS ANTICIPATED, CALL LIGHT WITHIN REACH.
--- NOTE | 2019-07-02 19:20 | NUR ---
REPORT GIVEN TO DIRECTOR OF MARKETING NURSE AT BEDSIDE FOR CONTINUE OF CARE, PT IS IN STABLE CONDITION AT THIS TIME
--- NOTE | 2019-07-02 19:45 | NUR ---
DR. RENO CALLED AND SPOKE WITH CHARGE NURSE TO ASSESS PATIENT'S HEADACHE PAIN, PT ADMITS TO PAIN REFUSES PAIN MEDICATION AT THIS TIME. PT A/O X4.
[2019-07-02] MEDS: ALBUTEROL SULFATE/IPRATROPIU 3 ML SOL IH SCH (20:00)
--- NOTE | 2019-07-02 20:10 | NUR ---
RECEIVED PATIENT ETT TO MECHANICAL VENTILATOR AT DOCUMENTED SETTINGS. VENT CHECK DONE. ALARMS ON AND AUDIBLE. VENT PLUGGED INTO CORRECT OUTLET WITH WHEELS LOCKED. AMBU BAG AT [facility]. AIRWAY SECURE AND PATENT. SUCTIONED SMALL AMOUNT OF THICK, YELLOW SECRETIONS. NO ACUTE RESPIRATORY DISTRESS NOTED AT THIS TIME. WILL CONTINUE TO MONITOR.
--- NOTE | 2019-07-02 20:49 | NUR ---
PT DUE MEDS GIVEN, DENIES PAIN AT THIS TIME. CONTINUE TO MONITOR.
--- NOTE | 2019-07-02 22:00 | NUR ---
PT TURNED AND REPOSITIONED, ARELY, ORAL AND TRACH CARE/SUCTION PROVIDED. DENIES ANY PAIN AT THIS TIME. CONTINUE TO MONITOR.
--- NOTE | 2019-07-02 23:45 | NUR ---
PT WITH EPISODE OF AGITATION VICKIE -1, NOTIFIED DR. RENO, RECEIVED ORDER MAY INCREASE PROPOFOL PER PROTOCOL, NOTED AND CARRIED OUT.
[2019-07-03] VITALS (93 sets, daily range): BP systolic 91–150; BP diastolic 50–91
--- NOTE | 2019-07-03 | NUR ---
PT ASLEEP IN BED, VICKIE -2, NO SIGNS OF ACUTE DISTRESS, TURNED AND REPOSITION. FLACC 0.
--- NOTE | 2019-07-03 00:45 | NUR ---
PATIENT EXTENDING/ELEVATING HANDS AT TIMES WITH MITTENS ON TOWARDS EYE AREA. GRIMACE ON FACE. LOCALIZING TO TOUCH. PATIENT BP AND HR ELEVATING. APPEARS AGITATED AND UNCOMFORTABLE. PATIENT CONTINUES TO CONFIRM AND DENY PAIN. PATIENT STATED LEFT LEG HURT AND STATED IT WAS FROM A PRIOR INJURY. PATIENT DENIED HEADACHE AFTER MD RENO CALLED TO CHECK PAIN SITUATION. PATIENT STATES HER POSITION IS COMFORTABLE. NURSE WAS WIPING PATIENTS MOUTH AND GIVING VAP ORAL CARE WHEN PATIENT BIT NURSE ON TIP OF LEFT POINTER FINGER. NO SKIN BROKEN AND NO GLOVE WAS BROKEN. PATIENT GIVEN MEDICATION D/T OBSERVATION. EXPLAINED TO PATIENT PRIOR TO ADMINISTRATION. CHARGE NURSE ADMINISTERED. PATIENT DID NOT FIGHT CHARGE NURSE. ALSO SPOKE TO PATIENT IN TAGALOG CHARGE NURSE AT BEDSIDE WITH NURSE. WILL CONTINUE TO MONITOR AT THIS TIME. NO SOB OR DISTRESS NOTED.
[2019-07-03] MEDS: MORPHINE SULFATE 2 MG/ML SYR IVP PRN (00:58)
--- NOTE | 2019-07-03 02:00 | NUR ---
PT ASLEEP IN BED,TURNED AND REPOSITION, KEPT CLEAN AND DRY, PROVIDED ORAL/TRACH CARE WITH SUCTION NEEDED. FLACC 0. CONTINUE TO MONITOR.
[2019-07-03] MEDS: PROPOFOL 1000 MG/100 ML PREMIX 100 ML IV PRN (02:13)
--- NOTE | 2019-07-03 04:00 | NUR ---
PT REMAINS ASLEEP IN BED,TURNED AND REPOSITION, KEPT CLEAN AND DRY, PROVIDED ORAL/TRACH CARE WITH SUCTION NEEDED. FLACC 0. CONTINUE TO MONITOR.
[2019-07-03] MEDS: PIPERACILLIN/TAZOBACTAM 3.375 GM in DEXTROSE 5% 50 ML IV SCH ×4 (05:05→23:10)
--- NOTE | 2019-07-03 06:00 | NUR ---
PT CXR TAKEN BY HISTORIC SITE ADMINISTRATOR AT BEDSIDE ORDERED. CONTINUE TO MONITOR.
--- NOTE | 2019-07-03 06:01 | NUR ---
PT TURNED AND REPOSITIONED, NOTED X1 BM LOOSE, CLEANED AND CHANGED, ORAL CARE AND SUCTION PROVIDED, CONTINUE TO MONITOR.
[2019-07-03 06:23] LABS: ANION GAP 13.1 (8-16); CARBON DIOXIDE 25.9 mmol/L (21-32); CREATININE 0.5 mg/dL (0.6-1.3)
[2019-07-03 06:47] LABS: ALBUMIN 1.6 g/dL (3.4-5.0); MAGNESIUM 1.9 mg/dL (1.8-2.4); PHOSPHORUS 1.4 mg/dL (2.5-4.9)
--- NOTE | 2019-07-03 06:54 | NUR ---
NOTED PT'S RLE MORE ON THE KNEE IS SWOLLEN, NO PITTING EDEMA NOTED, ELEVATED ON PILLOWS, ALSO PT'S POTASSIUM AT 3.0, DR. RENO MADE AWARE. NO ORDERS AT THIS TIME. WILL CONTINUE TO MONITOR.
[2019-07-03] MEDS: ALBUTEROL SULFATE/IPRATROPIU 3 ML SOL IH SCH ×3 (07:00→19:18)
--- NOTE | 2019-07-03 07:00 | NUR ---
RECEIVED ORDER FROM Alma MADDEN 40 MEQ IV X1. NOTED AND WILL CARRY OUT. AWAITING FOR PHARMACY TO VERIFY, WILL ENDORSE TO ONCOMING DAY SHIFT NURSE.
[2019-07-03] MEDS: KCL 20 MEQ/WATER INJ PREMIX 100 ML IV SCH ×4 (07:13→13:17)
--- NOTE | 2019-07-03 07:25 | NUR ---
rec'd pt on carescape vent settings ac 14 vt500 peep 5 fio2 30% alarms on and audible and ambu bag at hob and vent is plugged into red outlet, no hhn given pt sleeping b\s are clear bilaterally, sxn pt small amt of yellow secretions, pt is orally intubated with 7.5 et tube at 23cm secured with anchor fast pt is sleeping
--- NOTE | 2019-07-03 07:30 | NUR ---
RECEIVED REPORT FROM PM SHIFT. BEDSIDE MONITOR SHOWS ST 120S, PUPILS ACTIVE. ETT TO VENT WITH SETTING FIO2=30%, TV 400, AC 14, PEEP 5. O2 SATS 100 %, NO S/S OF RESPIRATORY DISTRESS NOTED. PT HAS CENTRAL LINE TO RIGHT IJ TLC WITH PROPOFOL AT 15 MCG/KG/MIN=5.9 cc/hr BASED ON DRY WEIGHT 65.7 KG, RASS -2. PT ALSO HAS IV FLUID D5 0.9 NS AT 30 CC/HR. CHEST TUBE IN PLACE with 15 cc per pm shift nurse. PT HAS TUBE FEEDING RUNNING VITAL AF 1.2 AT 50 CC PER HOUR WITH WATER FLUSH 50 CC Q 4 HRS . RESIDUAL CHECKED ZERO. MITTEN TO BOTH HANDS, CIRCULATION WELL. PT HAD 3 TIMES LOOSE/WATERY BM DURING MANAGER PLANNING PER PM NURSE. DERMATITIS TO ARELY AREA NOTED. Z-GUARD APPLIED. F/C IN PLACE. SCD IN PLACE, PT HAS EDEMA TO BOTH LOWER AND UPPER EXTREMITIES. WILL CONTINUE TO MONITOR.
--- NOTE | 2019-07-03 08:00 | NUR ---
bedside monitor shows ST 120s. temp check 101.5F, Acetaminophen 650 mg given. cooling measure applied. oral care given. 's group at bedside to check pt.
[2019-07-03] MEDS: ACETAMINOPHEN 325 MG TAB PO PRN (08:13)
[2019-07-03 08:14] LABS: BASOPHILS % (AUTO) 0.2 % (0.0-2.0); EOSINOPHILS # (AUTO) 0.3 K/uL (0-0.4); EOSINOPHILS % (AUTO) 3.8 % (0.0-4.0); HEMATOCRIT 26.8 % (36-48); HEMOGLOBIN 8.3 g/dL (12.0-16.0); LYMPHOCYTES # (AUTO) 1.6 K/uL (2.5-16.5); LYMPHOCYTES % (AUTO) 23.3 % (20.5-51.1); MEAN CORPUSCULAR HEMOGLOBIN 22 pg (27-31); MEAN CORPUSCULAR HGB CONC 31 g/dL (33-37); MEAN CORPUSCULAR VOLUME 70.2 fL (80-94); MONOCYTES # (AUTO) 0.6 K/uL (0.8-1.0); MONOCYTES % (AUTO) 8.9 % (1.7-9.3); NEUTROPHILS # (AUTO) 4.3 K/uL (1.8-7.7); NEUTROPHILS % (AUTO) 63.8 % (42.2-75.2); PLATELET COUNT (AUTO) 160 K/uL (140-450); RED BLOOD CELL COUNT(AUTO) 3.81 MIL/uL (4.20-5.40); RED CELL DISTRIBUTION WIDTH 15.7 % (11.6-13.7); WHITE BLOOD COUNT (AUTO) 6.8 K/uL (4.8-10.8)
[2019-07-03] MEDS: FERROUS SULFATE 300 MG/5 ML UDC GT SCH (08:20)
[2019-07-03] MEDS: ATORVASTATIN 20 MG TAB PO SCH (08:20)
[2019-07-03] MEDS: ASCORBIC ACID 500 MG/5 ML ORASYR GT SCH (08:20)
[2019-07-03] MEDS: FAMOTIDINE 20 MG TAB PO SCH (08:20)
[2019-07-03] MEDS: DOCUSATE SODIUM 100 MG GELCAP PO SCH ×2 (08:21→20:13)
[2019-07-03] MEDS: levETIRAcetam 1,500 MG in NACL 0.9% 100 ML IV SCH ×2 (08:57→20:12)
[2019-07-03] MEDS ORDERED: SODIUM FERRIC GLUCONATE 125 MG in NACL 0.9% 100 ML IV ONE (09:00)
--- NOTE | 2019-07-03 09:00 | NUR ---
rechecked temp 99.0 F, bedside monitor shows hr 104. Dr. Torres said do not turn off propofol until head CT done due to the first CT had artifacts.
[2019-07-03] MEDS: NACL 0.45% 1,000 ML IV SCH (10:00)
--- NOTE | 2019-07-03 10:35 | NUR ---
TOOK PT FOR CT AT 1020 WITH RT , RN AND TECH. CAME BACK AT 1035. PT TOLERATED WELL. STARTED SEDATION VACATION, RT NGHIA AND DR. CARABALLO AT BEDSIDE.
--- NOTE | 2019-07-03 10:55 | NUR ---
DR. CHANG CHANGED CPAP 5 PS 10
--- NOTE | 2019-07-03 11:45 | NUR ---
PT IS MORE AWAKE, PT TRIED TO USE HER TONGUE TO TAKE OUT INTUBATION TUBE. EXPLAINED TO PT WE ARE ON A TRAIL FOR HER OWN BREATHING, IF SHE CAN BREATH ON HER OWN, WE WILL EXTUBATE HER VERY SOON. WILL CLOSE MONITOR PT.
--- NOTE | 2019-07-03 12:06 | NUR ---
pt failed weaning twice today due to low rr of 6\5 and low vt, pt back on ac mode and rn holli notified
--- NOTE | 2019-07-03 12:10 | NUR ---
PUT PT BACK ON PROPOFOL DRIP 15 MCG/KG/MIN=5.9 CC/HR.
--- NOTE | 2019-07-03 14:48 | NUR ---
PT SEDATED WITH PROPOFOL. BEDSIDE MONITOR SHOWS HR 100S. NO S/S OF RESPIRATORY DISTRESS NOTED.
--- NOTE | 2019-07-03 14:56 | NUR ---
07/03/19 RD FOLLOW UP COMPLETED PLEASE REFER TO NUTRITION ASSESSMENT UNDER CARE ACTIVITY FOR ESTIMATED NUTRITIONAL NEEDS. 1. CONTINUE VITAL AF 1.2@50 ML/HR -THIS PROVIDES 1440 KCAL, 90G PROTEIN, WHICH MEETS 98% OF CALORIE NEEDS AND 100% OF PROTEIN NEEDS 2. RECOMMEND WATER FLUSH OF 115 ML Q6HRS 3. IF/WHEN PATIENT IS EXTUBATED AND READY FOR PO INTAKE CONSIDER A SWALLOW EVALUATION FOR DIET TEXTURES AND LIQUID RECOMMENDATIONS 4. FOLLOW UP 2-3 DAYS; HIGH RISK RUSTY MOORE RD
--- NOTE | 2019-07-03 16:10 | NUR ---
repositioned pt. pt's at bedside.
--- NOTE | 2019-07-03 19:10 | NUR ---
REPORT RECEIVED FROM AM NURSE AT BEDSIDE. PT IN STABLE CONDITION. AAOX1-2. PT ON PROPAFOL DRIP@5.9ML/HR OR 14.96MCG/KG/MIN. NO COMPLAINTS OF PAIN. NO SOB O2 SAT@100% ON MECHANICAL VENT. VENT SETTINGS FIO2@30%, VT 400, RR@14, AND PEEP@5. PT IS BEDBOUND. PT HAS VALENCIA DRAINING WELL. PT HAS CHEST TUBE@INTERMITTENT SUCTION. LATEST OUTPUT@50ML. IV SITE R IJ TRIPLE LUMEN RUNNING 1/2NS@30ML/HR, PROPAFOL@5.9ML/HR ALL 3 LUMENS PATENT AND INTACT. SKIN WARM, DRY, AND INTACT WITH NO OPEN WOUNDS, INCONTINENT DERMATITIS NOTED. TUBE FEEDING THROUGH NG TUBE GLUCERNA 1.2 RUNNING@50ML/HR WITH 50ML H20 FLUSH Q4H. VICKIE-3. BED LOCKED IN LOW POSITION WITH HOB@30 DEGREES. SAFETY PRECAUTIONS IN PLACE. ALL NEEDS MET AT THIS TIME. Addendum: 07/03/19 at 2000 by Capo Segovia RN FEEDING IS VITAL AF 1.2. Addendum: 07/03/19 at 2348 by Capo Segovia RN NG TUBE TO RIGHT SRINIVASAN. Addendum: 07/04/19 at 0617 by Capo Segovia RN DRY WEIGHT OF 65.7KG.
--- NOTE | 2019-07-03 19:27 | NUR ---
RECEIVED PATIENT ETT TO MECHANICAL VENTILATOR AT DOCUMENTED SETTINGS. VENT CHECK DONE. VENT PLUGGED INTO CORRECT OUTLET WITH WHEELS LOCKED. VENT ALARMS ON AND AUDIBLE. AMBU BAG AT [facility]. SCHEDULED BREATHING TREATMETN ADMINISTERED. TOLERATED TX WELL WITHOUT ADVERSE SIDE EFFECTS. AIRWAY SECURE AND PATENT. BREATH SOUNDS CLEAR WITH SUCTIONING. SUCTIONED SMALL AMOUNT OF THICK, YELLOW SECRETIONS. NO ACUTE RESPIRATORY DISTRESS NOTED AT THIS TIME. WILL CONTINUE TO MONITOR.
--- NOTE | 2019-07-03 20:00 | NUR ---
ORAL CARE DONE PER VAP PROTOCOL.
--- NOTE | 2019-07-03 20:12 | NUR ---
RADHA LEYVA AND RUNNING. DOCUSATE HELD DUE TO PATIENT HAVING DIARRHEA.
--- NOTE | 2019-07-03 22:34 | NUR ---
DR CASEY,ID MD AT BEDSIDE.UPDATED ON PTS PRESENT CONDITION.QUESTIONS ANSWERED.NO NEW ORDERS
--- NOTE | 2019-07-03 23:10 | NUR ---
VADIM HUNG AND RUNNING. PT TOLERATING WELL.
[2019-07-04] VITALS (48 sets, daily range): BP systolic 84–140; BP diastolic 47–88
--- NOTE | 2019-07-04 | NUR ---
ORAL CARE DONE.
--- NOTE | 2019-07-04 00:15 | NUR ---
PROPAFOL REDUCED TO 13MCG/KG/MIN OR 5.12ML/HR DUE TO A DECREASE IN BP OF 84/47. PT CURRENTLY AT RASS-3. WILL REASSESS.
--- NOTE | 2019-07-04 02:00 | NUR ---
PT SLEEPING COMFORTABLY BUT AROUSABLE. NO S/S OF DISTRESS NOTED. NO COMPLAINTS OF PAIN. NO SOB. AFEBRILE. WILL CONTINUE TO MONITOR.
--- NOTE | 2019-07-04 04:00 | NUR ---
ORAL CARE DONE.
[2019-07-04] MEDS: PIPERACILLIN/TAZOBACTAM 3.375 GM in DEXTROSE 5% 50 ML IV SCH ×4 (05:25→23:44)
[2019-07-04] MEDS: ACETAMINOPHEN 325 MG TAB PO PRN ×2 (05:25→20:26)
--- NOTE | 2019-07-04 05:25 | NUR ---
VADIM LEYVA AND RUNNING. PT TOLERATING WELL. Addendum: 07/04/19 at 0610 by Capo Segovia RN TEMPERATURE OF 100.6. TYL GIVEN FOR FEVER.
--- NOTE | 2019-07-04 05:30 | NUR ---
FEEDING CHANGED. RESIDUAL OF 0ML. PT TOLERATING FEEDING WELL.
[2019-07-04 06:33] LABS: BASOPHILS % (AUTO) 0.6 % (0.0-2.0); EOSINOPHILS # (AUTO) 0.4 K/uL (0-0.4); EOSINOPHILS % (AUTO) 5.3 % (0.0-4.0); HEMATOCRIT 27.6 % (36-48); HEMOGLOBIN 8.6 g/dL (12.0-16.0); LYMPHOCYTES # (AUTO) 1.9 K/uL (2.5-16.5); LYMPHOCYTES % (AUTO) 24.6 % (20.5-51.1); MEAN CORPUSCULAR HEMOGLOBIN 22 pg (27-31); MEAN CORPUSCULAR HGB CONC 31 g/dL (33-37); MEAN CORPUSCULAR VOLUME 69.9 fL (80-94); MONOCYTES # (AUTO) 0.9 K/uL (0.8-1.0); MONOCYTES % (AUTO) 11.8 % (1.7-9.3); NEUTROPHILS # (AUTO) 4.5 K/uL (1.8-7.7); NEUTROPHILS % (AUTO) 57.7 % (42.2-75.2); PLATELET COUNT (AUTO) 196 K/uL (140-450); RED BLOOD CELL COUNT(AUTO) 3.95 MIL/uL (4.20-5.40); RED CELL DISTRIBUTION WIDTH 15.4 % (11.6-13.7); WHITE BLOOD COUNT (AUTO) 7.7 K/uL (4.8-10.8)
[2019-07-04] MEDS: ALBUTEROL SULFATE/IPRATROPIU 3 ML SOL IH SCH ×3 (06:37→19:36)
--- NOTE | 2019-07-04 06:38 | NUR ---
RECEIVED PT ON CARESCAPE ON DOCUMENTED SETTINGS, ALARMS ARE ON AND AUDIBLE, PTS ETT IS SECURE 23 CM SIZE 7.5, ANCHOR FAST IN PLACE, BS CLEAR HHN GIVEN I\L WITH 3 MG DUONEB, PT IN HF AWAKE, WEARING SOFT MITTENS, BMV HOB, VENT PLUGGED INTO RED OUTLET, WILL CONTINUE TO MONITOR
[2019-07-04 07:09] LABS: MAGNESIUM 1.8 mg/dL (1.8-2.4); PHOSPHORUS 1.6 mg/dL (2.5-4.9)
[2019-07-04 07:15] LABS: ANION GAP 11.6 (8-16); CARBON DIOXIDE 25.9 mmol/L (21-32); CREATININE 0.5 mg/dL (0.6-1.3); POTASSIUM 3.5 mmol/L (3.5-5.1)
--- NOTE | 2019-07-04 07:20 | NUR ---
RECEIVED PT FROM HAT BLOCK MAKER RN, AUDREY. PT IS ETT TO VENT, FIO2 28%, VT 400, RATE 14, PEEP 5. PT IS AOX1. IV CATH NOTED TO RIGHT IJ, TRIPLE LUMEN, RUNNING PROPOFOL AT 13MCG/KG/MIN AND 1/2 NS/ AT 30ML/HR. DRY WEIGHT 65.7KG. IV DRESSING INTACT. LUNG SOUNDS CLEAR, DIMINISHED. PT IS BEDBOUND. NGT IN RIGHT NARE, AUSCULTATED FOR POSITIVE PLACEMENT. 0ML RESIDUAL. VALENCIA CATH IN PLACE, DRAINING CLEAR YELLOW URINE. PT HAS CHEST TUBE ON RIGHT SIDE, VOLUME MARKED. SKIN WARM AND DRY. FOAM DRESSING NOTED ON THE BACK WITH SMALL SKIN TEAR. INCONTINENT DERMATITIS NOTED. TUBE FEEDING THROUGH NGT VITAL AF RUNNING AT 50ML/HR WITH 50ML H20 FLUSH Q4H. RASS -2. BED LOCKED IN LOW POSITION WITH HOB 30 DEGREES. SAFETY PRECAUTIONS IN PLACE. CALL LIGHT WITHIN REACH.
[2019-07-04] MEDS: ASCORBIC ACID 500 MG/5 ML ORASYR GT SCH (09:00)
[2019-07-04] MEDS: FERROUS SULFATE 300 MG/5 ML UDC GT SCH (09:01)
[2019-07-04] MEDS: DOCUSATE SODIUM 100 MG GELCAP PO SCH ×2 (09:02→20:27)
[2019-07-04] MEDS: ATORVASTATIN 20 MG TAB PO SCH (09:04)
[2019-07-04] MEDS: FAMOTIDINE 20 MG TAB PO SCH (09:04)
--- NOTE | 2019-07-04 09:20 | NUR ---
GT MED GIVEN BY RN PAULIE LISA WITH HER INSTRUCTOR.
--- NOTE | 2019-07-04 09:33 | NUR ---
PLACED PT ON SBT 5 \12
[2019-07-04] MEDS: levETIRAcetam 1,500 MG in NACL 0.9% 100 ML IV SCH ×2 (09:56→20:27)
--- NOTE | 2019-07-04 11:05 | NUR ---
PT EXTUBATED W\O INCIDENT JAVY GARZA PRESENT PLACED 2L N/C
[2019-07-04] MEDS ORDERED: SODIUM PHOS / POTASSIUM PHOS 1 PKT PDR GT SCH (11:30)
--- NOTE | 2019-07-04 11:45 | NUR ---
SCREEN FOR LOW AGUSTIN SCALE AT RISK, CONTINUE TO FOLLOW PRESSURE ULCER PREVENTION INTERVENTIONS RECOMMENDATIONS: - CONTINUE CURRENT WOUND CARE MANAGEMENT PER MD ORDERS. - ABDOMINAL FOLD AND PERINEAL INCONTINENT ASSOCIATED DERMATITIS - CLEANSE WITH NS, PAT, DRY, APPLY Z-GAURD, AND LEAVE JOSUÉ DAILY AND PRN IF SOILED. - MID BACK SKIN TEAR - CLEANSE WITH NS, PAT DRY, APPLY VERSATEL DRESSING AND COVER WITH OPTIFOAM DRESSING Q5DAYS AND PRN IF SOILED. -TURN AND REPOSITION PATIENT Q 2H, ASSIST IF NEEDED -ASSESS AND MONITOR SKIN CONDITION DURING POSITION CHANGES -OFFLOAD BILATERAL HEELS BY PLACING PILLOWS UNDER CALVES AT ALL TIMES, UNLESS OTHERWISE CONTRAINDICATED -PRESSURE REDISTRIBUTION BY PLACING PILLOWS AND OFFLOADING SACRALCOCCYX -KEEP SKIN CLEAN AND DRY AT ALL TIMES.
--- NOTE | 2019-07-04 11:50 | NUR ---
DR CHANG SEEN PT. DR CHANG SAID KEEP THE CHEST TUBE IN FOR TODAY, WILL EVALUATE TOMORROW. MADE DR CHANG AWARE THAT PT TRYING TO REMOVE HER NGT EVEN I ALREADY EXPLAINED TO HER ABOUT SWALLOW EVAL AND THE IMPORTANCE OF NGT AT THIS TIME.
--- NOTE | 2019-07-04 11:55 | NUR ---
CALLED DR CARABALLO, MADE HIM AWARE THAT PT HAS PITTING EDEMA ON BOTH HANDS AND FEET. DR CARABALLO SAID HE ALREADY KNOW.
--- NOTE | 2019-07-04 12:39 | NUR ---
REORIENTED PT AGAIN, JAY OQUENDO SITTING WITH PT.
[2019-07-04] MEDS: NACL 0.45% 1,000 ML IV SCH (12:56)
--- NOTE | 2019-07-04 14:36 | NUR ---
DISCHARGE PLANNING: A 69 Y/O FEMALE PATIENT FROM HOME, WHO CAME IN DUE TO MULTIPLE SEIZURES. PAST MEDICAL HISTORY INCLUDE CROHN'S DISEASE AND CHRONIC INFLAMMATORY DEMYELINATING POLYNEUROPATHY. INITIAL DIAGNOSIS OF STATUS EPILEPTICUS. CURRENT LABS INCLUDE WBC 7.7, H/H 8.6/27.6, NA/K 146/3.5, BUN/CREA 6/0.5, PHOS 1.6 AND ALB 1.6. (+) E COLI URINE. BLOOD, SPUTUM AND C DIFF PENDING. ON ZOSYN AND KEPPRA IV. ID, NEURO AND PULMO CONSULTS IN PLACE. DC PLAN PENDING ON PATIENT'S RESPONSE TO TREATMENT. Addendum: 07/10/19 at 1111 by Jennifer Lau CM RECEIVED AN ORDER FOR SNF EVALUATION. MET WITH THE PATIENT AT THE BEDSIDE TO DISCUSS DC PLAN. PATIENT APPEARS TO BE CONFUSED, STATING HER SISTER IS COMING FROM THE TV AND POINTING ON THE CHAIR HER MOTHER. CHARGE NURSE MADE AWARE. CONTACTED PATIENT'S MOHIT SINGLETARY AT [phone] AND IS IN AGREEMENT HOWEVER HE STATED TO CONTACT PATIENT'S SISTER SANJANA PATTERSON AT [phone]. CONTACTED THE PROVIDED NUMBER, AND IS IN AGREEMENT. IMM AND CHOICE OF VENDOR LETTER DISCUSSED WELL. Addendum: 07/11/19 at 1302 by Jennifer Lau CM RECEIVED AN ORDER FOR DC TO [facility] FOR PT AND IV ANTIBIOTICS. INQUIRY SENT TO [facility] AND [facility] ISIAH TO FOLLOW UP. Addendum: 07/11/19 at 1330 by Jennifer Lau CM RECEIVED A CALL FROM MATTHEW VELASQUEZ [facility], SHE STATED THEY ARE ABLE TO ACCEPT THE PATIENT AND WILL CALL ME BACK FIR THE ROOM NUMBER. Addendum: 07/11/19 at 1455 by Jennifer Lau CM PER MATTHEW OF [facility], PATIENT CAN GO TO ROOM 109[address] UNDER DR. CARABALLO. Addendum: 07/12/19 at 1025 by Jennifer Lau CM CONTACTED MATTHEW INTAKE AT [facility], PER MATTHEW BRANDT IS STILL IN THE MEETING BUT WILL RELAY THE MESSAGE. Addendum: 07/12/19 at 1032 by Jennifer Lau CM PATIENT'S MOHIT GEMINI MADE AWARE THAT PATIENT WILL BE DISCHARGING TODAY TO [facility]. Addendum: 07/12/19 at 1103 by Jennifer Lau CM PER MATTHEW OF [facility], PATIENT WILL GO TO THEIR SISTER FACILITY [facility] ROOM [facility] UNDER DR. CARABALLO. AND THEY [facility] UP [facility]SP[facility]LL [facility] TRANSP[facility] BETWEEN [phone]. DR. CARABALLO AND PRIMARY RN VIPIN MADE AWARE. Addendum: 07/12/19 at 1221 by Jennifer Lau CM 1105: CONTACTED PATIENT'S MOHIT SINGLETARY TO INFORM HIM THAT INSTEAD OF [facility], PATIENT WILL GO TO [facility] WHICH IS THE SISTER FACILITY OF [facility]. HE STATED HE IS ON HIS WAY TO THE HOSPITAL AND RATHER SPEAK TO ME IN PERSON. 1130: MET WITH THE PATIENT AND HER AT THE BEDSIDE TO INFORM THEM REGARDING THE FACILITY CHANGES AND [facility] RECREATION DIRECTOR TIME. I ALSO INFORMED HIM THAT DR. CARABALLO GOES TO BOTH FACILITIES. AT FIRST HE IS NOT HAPPY OF THE CHANGES HOWEVER AFTER I EXPLAINED EVERYTHING TO HIM AND THE PATIENT, THE PATIENT STATED "HONEY, I AM THE ONE WHO IS GOING AND NOT YOU. YOU WILL ONLY BE THERE TO VISIT ME." BOTH PATIENT AND HER AGREED. PATIENT'S REQUESTED ADDRESS AND PHONE NUMBER FOR [facility], WHICH I PROVIDED.
--- NOTE | 2019-07-04 15:00 | NUR ---
PT'S AT BEDSIDE. PT IS NOT ON ANY RESTRAINT. DR CARABALLO CAME AND TALKED TO PT AND HER .
--- NOTE | 2019-07-04 16:00 | NUR ---
WOUND PIC TAKEN FOR SCAB ON THE BACK, AND INCONTINENT DERMATITIS ON PERINEAL AREA. PT HAD BMX1, LOOSE STOOL. PT WAS CLEANED, CHUX CHANGED. Z GUARD APPLIED TO PERINEAL AREA. LOTION TO HIP AND BLE.
--- NOTE | 2019-07-04 16:15 | NUR ---
PT IS YELLING IN HER [place] LANGUAGE, PT'S AT BEDSIDE. CHECKED ON PT, PT IS HALLUCINATING. ASKED WHAT PT SAW, SHE SAID SOMEONE HOLDING A GUN, PT TOLD ME TO RUN. TOLD DR CARABALLO ABOUT IT. ASKED DR CARABALLO IF I CAN GIVE PT ATIVAN. DR CARABALLO SAID NO, WILL GET DR HAGAN THE PSYCHIATRIST TO SEE PT.
[2019-07-04] MEDS ORDERED: HALOPERIDOL 1 MG TAB GT SCH ×2 (16:35→21:00)
--- NOTE | 2019-07-04 19:30 | NUR ---
RECEIVED PT FROM AM SHIFT KAYLA RN. PT IS ALERT ORIENTED X2 WITH CONFUSION AND EPISODE OF HALLUCINATION. PT EXTUBATED AT 1105 AM AND CONT ON O2 AT 2LPM VIA N/C TOLERATED WELL, NO S/S OF RESP.DISTRESS, NO SOB. HOB UP 30-[address] ON MONITOR.CENTRAL LINE TO RIGHT IJ, TRIPLE LUMEN, RUNNING 1/2 NS/ AT 30ML/HR. IV DRESSING INTACT. LUNG SOUNDS CLEAR, DIMINISHED. PT IS BEDBOUND. NGT IN RIGHT NARE, AUSCULTATED FOR POSITIVE PLACEMENT. NO RESIDUAL.NGT FEEDING VITAL AF 1.2 AT 50 CC/HR AND H2050 ML Q 4HRS. VALENCIA CATH IN PLACE WITH DRAINING CLEAR YELLOW URINE. PT HAS CHEST TUBE ON RIGHT SIDE, VOLUME MARKED. SKIN WARM AND DRY TO TOUCH. KEPT CLEAN AND DRY. CALL LIGHT IN REACH.
[2019-07-04] MEDS: SODIUM PHOS / POTASSIUM PHOS 1 PKT PDR GT SCH (20:26)
[2019-07-04] MEDS: OLANZapine 2.5 MG TAB PO SCH (20:26)
--- NOTE | 2019-07-04 21:00 | NUR ---
PT C/O HEADACHE AND PAIN 10/20, PT REQUEST TO HAVE TYLENOL,MED GIVEN ORDER.
--- NOTE | 2019-07-04 21:40 | NUR ---
PT SLEEPING, NO S/S OF PAIN AT THIS TIME.
--- NOTE | 2019-07-04 22:00 | NUR ---
COME AND UP DATE PT CONDITION. PER TO CONT ZOSYN IV ORDER.
[2019-07-04] MEDS: HYDROcodone/APAP 7.5/325 MG 1 TAB PO PRN (23:45)
--- NOTE | 2019-07-04 23:45 | NUR ---
MIDNIGHT MED GIVEN. PT C/O HEADACHE PAIN 6/10 AND T 100.9. COOLING MEASURE APPLY. NORCO GIVEN ORDER.
[2019-07-05] VITALS (9 sets, daily range): BP systolic 112–138; BP diastolic 60–78
--- NOTE | 2019-07-05 00:27 | NUR ---
PT AWAKE DENIAL PAIN AT THIS TIME T 98.5.
--- NOTE | 2019-07-05 04:00 | NUR ---
AM CARE GIVEN, ORAL CARE ,SPONGE BATH AND F/C CARE. CHEST TUBE TO RIGHT CHEST WITH 17CCC DRAINAGE.
--- NOTE | 2019-07-05 05:00 | NUR ---
AM MED GIVEN ALE WELL
[2019-07-05] MEDS: PIPERACILLIN/TAZOBACTAM 3.375 GM in DEXTROSE 5% 50 ML IV SCH ×4 (05:11→23:30)
[2019-07-05 06:10] LABS: BASOPHILS % (AUTO) 0.5 % (0.0-2.0); EOSINOPHILS # (AUTO) 0.4 K/uL (0-0.4); EOSINOPHILS % (AUTO) 5.6 % (0.0-4.0); HEMOGLOBIN 8.9 g/dL (12.0-16.0); LYMPHOCYTES # (AUTO) 2.4 K/uL (2.5-16.5); LYMPHOCYTES % (AUTO) 34.7 % (20.5-51.1); MEAN CORPUSCULAR HEMOGLOBIN 21 pg (27-31); MEAN CORPUSCULAR HGB CONC 31 g/dL (33-37); MEAN CORPUSCULAR VOLUME 70.2 fL (80-94); MONOCYTES # (AUTO) 1.1 K/uL (0.8-1.0); MONOCYTES % (AUTO) 15.5 % (1.7-9.3); NEUTROPHILS % (AUTO) 43.7 % (42.2-75.2); PLATELET COUNT (AUTO) 243 K/uL (140-450); RED BLOOD CELL COUNT(AUTO) 4.13 MIL/uL (4.20-5.40); RED CELL DISTRIBUTION WIDTH 15.3 % (11.6-13.7); WHITE BLOOD COUNT (AUTO) 6.9 K/uL (4.8-10.8)
[2019-07-05 06:48] LABS: ANION GAP 11.9 (8-16); CARBON DIOXIDE 29.2 mmol/L (21-32); CREATININE 0.5 mg/dL (0.6-1.3); POTASSIUM 3.1 mmol/L (3.5-5.1)
[2019-07-05 06:54] LABS: MAGNESIUM 1.7 mg/dL (1.8-2.4); PHOSPHORUS 3.3 mg/dL (2.5-4.9)
--- NOTE | 2019-07-05 07:22 | NUR ---
REPORT GIVEN TO AM SHIFT. PT IS AWAKE, NO S/S OF DISTRESS. NO SOB NOTED.
--- NOTE | 2019-07-05 07:30 | NUR ---
RECEIVED BEDSIDE REPOST FROM RESEARCH CLERK RN. PT IT AWAKE, AOX2, FOLLOW SIMPLE COMMANDS. DENIES PAIN. TEMP 99.7. SINUS TACHY ON MONITOR. S1 S2 HEARD. PULSES PALPABLE TO ALL EXTREMITIES. CAP REFILL < 2 SEC. ON O2 AT 2 LPM/NC. RHONCHI AUSCULTATED BILATERALLY. BREATHING EVEN AND UNLABORED. CENTRAL LINE TO RIJ ASYMPTOMATIC, PATENT AND INTACT, RUNNING 1/2NS AT 30 ML/HR. NGT IN PLACE TO RIGHT NARE, PLACEMENT CONFIRMED BY AUSCULTATION, RECEIVING TF VITAL AF AT 30 ML/HR WITH FWF 50 ML Q4H, NO RESIDUALS NOTED AT THIS TIME. ABDOMEN SOFT, NONDISTENDED, NONTENDER WITH ACTIVE BOWEL SOUNDS. CHEST TUBE TO RIGHT CHEST, NO REDNESS, SWELLING OR NO S/SX OF INFECTION NOTED AT INSERTION SITE, VOLUME MARKED. VALENCIA CATH IN PLACE DRAINING CLEAR YELLOW URINE TO GRAVITY DRAINAGE BAG. SKIN IS DRY AND WARM TO TOUCH. BLANCHABLE REDNESS NOTED TO PERINEAL AND BUTTOCKS AREA. HOB 30 DEGREES, BED IN LOWEST POSITION LOCKED. CALL LIGHT WITHIN REACH. WILL CONTINUE TO MONITOR. Addendum: 07/05/19 at 1007 by Gaurang Sanches RN TUBE FEEDING RATE AT 50 ML/HR (GOAL RATE)
[2019-07-05] MEDS: FAMOTIDINE 20 MG TAB PO SCH (08:05)
[2019-07-05] MEDS: DOCUSATE SODIUM 100 MG GELCAP PO SCH ×2 (08:05→21:00)
[2019-07-05] MEDS: ATORVASTATIN 20 MG TAB PO SCH (08:05)
[2019-07-05] MEDS: SODIUM PHOS / POTASSIUM PHOS 1 PKT PDR GT SCH (08:05)
[2019-07-05] MEDS: ASCORBIC ACID 500 MG/5 ML ORASYR GT SCH (08:05)
[2019-07-05] MEDS: FERROUS SULFATE 300 MG/5 ML UDC GT SCH (08:06)
[2019-07-05] MEDS: ALBUTEROL SULFATE/IPRATROPIU 3 ML SOL IH SCH ×2 (08:11→13:29)
--- NOTE | 2019-07-05 08:15 | NUR ---
MEDICATIONS ADMINISTERED ORDERED. PT TOLERATED WELL.
[2019-07-05] MEDS: levETIRAcetam 1,500 MG in NACL 0.9% 100 ML IV SCH ×2 (08:30→21:13)
--- NOTE | 2019-07-05 08:35 | NUR ---
DR. PALACIO AND RESIDENT GROUP AT BEDSIDE. DR. CARABALLO MADE AWARE OF POTASSIUM LEVEL 3.1, MAGNESIUM 1.7, WILL FOLLOW UP ON ORDERS.
[2019-07-05] MEDS ORDERED: LORazepam 2 MG/ML VIAL IM/IVP PRN (09:15)
--- NOTE | 2019-07-05 09:20 | NUR ---
CHEST X-RAY AT BEDSIDE. PT TOLERATING WELL. NO S/SX OF ACUTE DISTRESS AT THIS TIME.
[2019-07-05] MEDS: NACL 0.45% 1,000 ML IV SCH (09:56)
[2019-07-05] MEDS ORDERED: MAG SULF 2000 MG/WATER PREMIX 50 ML IV SCH (10:00)
--- NOTE | 2019-07-05 11:20 | NUR ---
PT REMOVED NASAL CANNULA AND REFUSED TO PUT BACK. RR 19 SPO2 95% ON ROOM AIR. NO SOB OR OTHER SIGNS OF RESPIRATORY DISTRESS NOTED. WILL CONTINUE TO MONITOR.
--- NOTE | 2019-07-05 11:30 | NUR ---
PT HAD MODERATE AMOUNT OF LOOSE BOWEL MOVEMENT. CLEANED AND REPOSITIONED. PT TOLERATED WELL.
--- NOTE | 2019-07-05 12:30 | NUR ---
SPEECH THERAPIST AT BEDSIDE. PT'S VSS. NO SIGNS OF DISTRESS NOTED. WILL FOLLOW UP WITH RECOMMENDATION.
--- NOTE | 2019-07-05 12:36 | NUR ---
*S.T. BEDSIDE SWALLOW EVAL COMPLETED* See report. Pt presents w/ mod-severe oropharyngeal dysphagia c/b likely premature spillage into pharynx prior to pharyngeal swallow initiation due to audible/sloshy swallow w/ all P.O. trials of liquid textures. Prolonged mastication and delayed pharyngeal swallow response w/ solids. Pt is deemed at moderate risk for aspiration. Recommend: 1) Advance to pureed diet, nectar thick liquids. Straws sips ok if controlled by feeder. 2) P.O. meds crushed and mixed w/ puree such as applesauce. 3) 1:1 feeder w/ aspiration precautions 4) S.T. to follow for swallow tx w/ P.O. trials 2x/1wk. D/w pt results/recommendations. No family/caregiver present. Endorsed to event marketing coordinator Ellen. Time [id number]
--- NOTE | 2019-07-05 12:45 | NUR ---
DR. CARABALLO AWARE OF ST CLARIFICATION ORDER. WILL FOLLOW UP WITH ANY NEW ORDER.
[2019-07-05] MEDS ORDERED: KCL 20 MEQ/WATER INJ PREMIX 200 ML IV SCH (13:00)
--- NOTE | 2019-07-05 13:00 | NUR ---
NGT DISCONTINUED. PT TOLERATED WELL.
--- NOTE | 2019-07-05 13:15 | NUR ---
PT SEEN BY DR. CHANG AND DR. CARABALLO AT BEDSIDE. WILL FOLLOW UP ON ORDERS.
--- NOTE | 2019-07-05 13:20 | NUR ---
CHEST TUBE OFF TO WALL SUCTION AND CONNECTED TO WATER SEAL AT THIS TIME PER DR. CHANG.
--- NOTE | 2019-07-05 13:29 | NUR ---
GOOD STRONG PRODUCTIVE COUGH OROPHARYNX SUCTION FOR MODERATE SEMI THICK YELLOW SECRETIONS
--- NOTE | 2019-07-05 15:15 | NUR ---
PT'S AT BEDSIDE. PT IS TALKING. ON O2 AT 2 LPM/NC. NO SIGNS OF ACUTE DISTRESS NOTED AT THIS TIME. BED IN LOWEST POSITION LOCKED. SAFETY PRECAUTIONS IN PLACE.
--- NOTE | 2019-07-05 15:41 | NUR ---
07/05/19 RD FOLLOW UP COMPLETED PLEASE REFER TO NUTRITION ASSESSMENT UNDER CARE ACTIVITY FOR ESTIMATED NUTRITIONAL NEEDS. 1. CONTINUE PUREE W/ NECTAR THICK LIQUIDS DIET TOLERATED 2. RD RECOMMEND CARDIAC, PUREE DIET W/ NECTAR THICK LIQUIDS 4. FOLLOW UP 2-3 DAYS; HIGH RISK RUSTY MOORE, RD
--- NOTE | 2019-07-05 15:50 | NUR ---
RIJ CENTRAL LINE DISCONTINUED, PRESSURE APPLIED AT SITE. CENTRAL LINE TIP INTACT, NO BLEEDING OR S/SX OF INFECTION NOTED AT THE SITE. WILL CONTINUE TO MONITOR.
--- NOTE | 2019-07-05 16:00 | NUR ---
CHEST TUBE CLAMPED PER DR. CARABALLO.
--- NOTE | 2019-07-05 17:50 | NUR ---
PT HAVING DINNER. 1:1 FEEDER W/ ASPIRATION PRECAUTIONS. AT BEDSIDE. PT ABLE TO COUGH AND SPIT OUT SPUTUM. NO S/SX OF DISTRESS AT THIS TIME. SAFETY PRECAUTIONS IN PLACE. WILL CONTINUE TO MONITOR.
[2019-07-05 19:26] LABS: ANION GAP 12.8 (8-16); CARBON DIOXIDE 28.3 mmol/L (21-32); CREATININE 0.5 mg/dL (0.6-1.3); POTASSIUM 3.1 mmol/L (3.5-5.1)
--- NOTE | 2019-07-05 19:30 | NUR ---
REPORT GIVEN TO OCCUPATIONAL SAFETY AND HEALTH MANAGER RN FOR CONTINUITY OF CARE. NO SIGNS OF DISTRESS NOTED AT THIS TIME.
--- NOTE | 2019-07-05 19:32 | NUR ---
RECEIVED REPORT FROM DAYSHIFT NURSE AT PATIENTS BEDSIDE. PATIENT IS AWAKE AND ALERT x2. ON ROOM AIR, SATURATIONS 95%. LUNG SOUNDS SLIGHTLY RHONCHI AND DIMINISHED AT RIGHT LOWER BASE. CHEST TUBE IN PLACE, WITH 2 CLAMPS. DRESSING INTACT. OUTPUT ON CHEST TUBE SHOWS 100ML. S1S2 HEARD, SINUS TACH ON MONITOR OF 110 BPM. ABDOMEN IS SOFT AND NONTENDER WITH ACTIVE BOWEL SOUNDS. INCONTINENT DERMATITIS NOTED WITH Z-GUARD APPLIED. SLIGHTLY RED ON BUTTOCKS, SKIN INTACT. VERSATEL DRESSING IN PLACE TO RIGHT BACK, SMALL SKIN TEAR, HEALING, NOTED. RIGHT IJ D/C'd, DRESSING IS DRY AND INTACT. LEFT FOREARM PERIPHERAL IV, 20G INFUSING 1/2 NS @ 30ML/HR. FLUSHED AND PATENT WITHOUT SYMPTOMS. VALENCIA CATHETER IN PLACE WITH CLEAR YELLOW URINE NOTED. EMPTIED 225 ML OF. [address]CD's IN PLACE, ASPIRATION AND SEIZURE PRECAUTIONS IN PLACE. ORIENTED PATIENT TO TREATMENT PLAN AND CALL LIGHT. BED LOCKED AND IN LOWEST POSITION. WILL CONTINUE TO MONITOR.
--- NOTE | 2019-07-05 20:00 | NUR ---
GAVE REPORT TO [facility] NURSE HARRY, PATIENT IN STABLE CONDITION, CONNECTED TO TELE MONITOR. NO COMPLAINTS AT THIS TIME. PATIENT TRANSFERRED TO [facility] ROOM 107A.
--- NOTE | 2019-07-05 20:01 | NUR ---
RECEIVED REPORT FROM PACKING INSPECTOR VINCENT. PT TRANSFERRED TO BED 107A WITH CHIEF CHEMIST AND ICU CHARGE NURSE. PATIENT IS AAO x2. LUNG SOUNDS SLIGHTLY RHONCHI AND DIMINISHED AT RIGHT LOWER BASE. CHEST TUBE IN PLACE, WITH 2 CLAMPS. DRESSING INTACT. OUTPUT ON CHEST TUBE SHOWS 100ML. S1S2 HEARD, SINUS TACHY. ABDOMEN IS SOFT AND NONTENDER WITH ACTIVE BOWEL SOUNDS. INCONTINENT DERMATITIS NOTED WITH Z-GUARD APPLIED. SLIGHTLY RED ON BUTTOCKS, SKIN INTACT. VERSATEL DRESSING IN PLACE TO RIGHT BACK, SMALL SKIN TEAR, HEALING, NOTED. RIGHT IJ D/C'd, DRESSING IS DRY AND INTACT. LEFT FOREARM PERIPHERAL IV, 20G INFUSING 1/2 NS @ 30ML/HR. VALENCIA CATHETER IN PLACE WITH CLEAR YELLOW URINE NOTED. SCD's IN PLACE, ASPIRATION AND SEIZURE PRECAUTIONS IN PLACE. ORIENTED PATIENT TO TREATMENT PLAN AND CALL LIGHT. BED LOCKED AND IN LOWEST POSITION. WILL CONTINUE TO MONITOR.
[2019-07-05] MEDS ORDERED: CRUSHER, PILL MC ONE (21:11)
[2019-07-05] MEDS: OLANZapine 2.5 MG TAB PO SCH (21:13)
--- NOTE | 2019-07-05 21:13 | NUR ---
EARLE MEDICATIONS GIVEN. CRUSHED AND GAVE WITH APPLESAUCE PT TOLERATED WELL. HELD COLACE D/T LIQUID BM DURING DAY SHIFT. PT TOLERATED WELL. WILL CONTINUE TO MONITOR.
[2019-07-05] MEDS: MORPHINE SULFATE 2 MG/ML SYR IVP PRN (22:02)
--- NOTE | 2019-07-05 22:02 | NUR ---
ADMINISTERED MORPHINE FOR BACK PAIN 01/20. PT TOLERATED WELL. CALL LIGHT IS WITHIN REACH. WILL CONTINUE TO MONITOR.
[2019-07-05] MEDS: ACETAMINOPHEN 325 MG TAB PO PRN (23:30)
[2019-07-06] VITALS: BP 154/84
--- NOTE | 2019-07-06 | NUR ---
VSS. PT LAYING IN BED VERY EMOTIONAL STATES SHE WANTS TO GO HOME. EXPLAINED POC TO PT, SHE VERBALIZED UNDERSTANDING. ALL SAFETY MEASURES ARE IN PLACE. WILL CONTINUE TO MONITOR.
--- NOTE | 2019-07-06 02:22 | NUR ---
PATIENT IS SLEEPING COMFORTABLY IN BED. CHEST RISE AND FALL. CALL LIGHT IS WITHIN REACH. WILL CONTINUE TO MONITOR.
[2019-07-06 04:00] VITALS: BP 140/84
[2019-07-06] MEDS ORDERED: HALOPERIDOL 1 MG TAB PO SCH (04:00)
--- NOTE | 2019-07-06 04:02 | NUR ---
PT IS VERY AGITATED HAVING HALLUCINATION PT YELLING, "BE CAREFUL THERE IS A DOG BEHIND YOU! HE IS GOING TO BITE!" ADMINISTERED HALDOL PO X1. ORIENTED PT AND ATTEMPT TO CALM DOWN. SAFETY MEASURES ARE IN PLACE. WILL CONTINUE TO MONITOR.
--- NOTE | 2019-07-06 04:35 | NUR ---
PT IS SLEEPING COMFORTABLY WITH EYES CLOSED. CHEST RISE AND FALL. NO S/S OF DISTRESS.
[2019-07-06] MEDS: PIPERACILLIN/TAZOBACTAM 3.375 GM in DEXTROSE 5% 50 ML IV SCH ×4 (05:46→23:11)
[2019-07-06 06:55] LABS: BASOPHILS % (AUTO) 0.4 % (0.0-2.0); EOSINOPHILS # (AUTO) 0.5 K/uL (0-0.4); EOSINOPHILS % (AUTO) 7.1 % (0.0-4.0); HEMATOCRIT 30.3 % (36-48); HEMOGLOBIN 9.3 g/dL (12.0-16.0); LYMPHOCYTES # (AUTO) 1.6 K/uL (2.5-16.5); LYMPHOCYTES % (AUTO) 22.2 % (20.5-51.1); MEAN CORPUSCULAR HEMOGLOBIN 22 pg (27-31); MEAN CORPUSCULAR HGB CONC 31 g/dL (33-37); MEAN CORPUSCULAR VOLUME 70.2 fL (80-94); MONOCYTES # (AUTO) 0.9 K/uL (0.8-1.0); MONOCYTES % (AUTO) 12.3 % (1.7-9.3); NEUTROPHILS # (AUTO) 4.2 K/uL (1.8-7.7); PLATELET COUNT (AUTO) 294 K/uL (140-450); RED BLOOD CELL COUNT(AUTO) 4.31 MIL/uL (4.20-5.40); RED CELL DISTRIBUTION WIDTH 15.2 % (11.6-13.7); WHITE BLOOD COUNT (AUTO) 7.2 K/uL (4.8-10.8)
[2019-07-06] MEDS: ALBUTEROL SULFATE/IPRATROPIU 3 ML SOL IH SCH ×3 (07:18→19:18)
--- NOTE | 2019-07-06 07:20 | NUR ---
RECEIVED BEDSIDE REPORT FROM EDI ARCHITECT NURSE. PT IS ASLEEP, NO S/S OF DISTRESS NOTED. PT IS ON ROOM AIR. SKIN INTACT ASIDE FROM SKIN TEAR ON THE LOWER BACK COVERED WITH VERSATEL, AND INCONTINENCE DERMATITIS. VALENCIA CATHETER IN PLACE DRAINING CLEAR YELLOW URINE. R CHEST TUBE IN PLACE, CLAMPED. BLE AND BUE EDEMA NOTED. IV SITE L UPPER ARM 20 G INFUSING 1/2 NS 30 ML/HR. FALL AND SEIZURE PRECAUTIONS IN PLACE. CALL LIGHT IS WITHIN REACH. WILL CONTINUE TO MONITOR.
--- NOTE | 2019-07-06 07:26 | NUR ---
GAVE BEDSIDE REPORT TO DAY RN. PT ENDORSED IN STABLE CONDITION.
[2019-07-06 07:29] LABS: CARBON DIOXIDE 30.1 mmol/L (21-32); CREATININE 0.5 mg/dL (0.6-1.3); POTASSIUM 3.1 mmol/L (3.5-5.1)
[2019-07-06 07:41] LABS: MAGNESIUM 2.2 mg/dL (1.8-2.4); PHOSPHORUS 2.6 mg/dL (2.5-4.9)
[2019-07-06 08:00] VITALS: BP 147/81
[2019-07-06] MEDS: ATORVASTATIN 20 MG TAB PO SCH (09:00)
[2019-07-06] MEDS: HALOPERIDOL 1 MG TAB PO SCH ×3 (09:00→20:10)
[2019-07-06] MEDS: ASCORBIC ACID 500 MG/5 ML ORASYR GT SCH (09:00)
[2019-07-06] MEDS: DOCUSATE SODIUM 100 MG GELCAP PO SCH ×2 (09:00→20:10)
[2019-07-06] MEDS: FAMOTIDINE 20 MG TAB PO SCH (09:00)
[2019-07-06] MEDS: FERROUS SULFATE 300 MG/5 ML UDC GT SCH (09:00)
[2019-07-06] MEDS: ACETAMINOPHEN 325 MG TAB PO PRN ×3 (10:14→13:23)
[2019-07-06] MEDS: levETIRAcetam 1,500 MG in NACL 0.9% 100 ML IV SCH ×2 (10:15→20:09)
[2019-07-06] MEDS: NACL 0.45% 1,000 ML IV SCH (10:29)
--- NOTE | 2019-07-06 10:58 | NUR ---
PT REFUSED ALL HER ORAL MEDS; PT IS BEING VERBALLY ABUSIVE TO RN, IS DISTRUSTING AND USES FOUL LANGUAGE. PT SAID THAT SHE WANTS TYLENOL FOR A HEADACHE, BUT WHEN GIVEN, SHE SPIT IT OUT TWICE. WHEN RN WAS ABOUT TO LEAVE THE ROOM, PT ASKED FOR TYLENOL AGAIN. DR NEAL IS AWARE OF PT'S BEHAVIOR.
[2019-07-06 12:00] VITALS: BP 123/66
--- NOTE | 2019-07-06 13:30 | NUR ---
PT C/O HEADACHE, ASKING FOR TYLENOL AGAIN. TYLENOL ADMINISTERED SUCCESSFULLY THIS TIME, CRUSHED WITH APPLE SAUCE. PT TOLERATED WELL.
--- NOTE | 2019-07-06 13:41 | NUR ---
PT EATING LUNCH, SUSPENDER CUTTER IS ASSISTING.
--- NOTE | 2019-07-06 14:01 | NUR ---
*S.T. TREATMENT NOTE* S: Pt seen at bedside, seated fully upright, being fed lunch tray by [employer] DEVELOPER. Correct diet textures arrived on tray: puree w/ honey thick liquids. Pt c/o HERNANDEZ, which she was given pain meds for <10 min prior to this tx session, per RN [place]. Pt also c/o being "very hot," despite having blanket, sheet and sequentials removed. Pt agitated. No family member or caregiver present at time of tx. O: Pt observed taking P.O. of lunch tray of purees, honey thick liquids via spoon by clinician, honey thick liquids via straw by J[employer] WE[employer] DEVELOPER. A: Pt is tolerating recommended diet textures and has improved in oromotor control and timeliness of pharyngeal swallow response, w/o any overt s/s aspiration. P: Recommend advance diet to mechanical soft ground, nectar thick liquids. Endorsed to nsg. Continue POC. Time [id number]
--- NOTE | 2019-07-06 14:21 | NUR ---
PT HAVING CHEST TUBE REMOVED AT THIS TIME BY DR RUTLEDGE AND DR NEAL. IS HERE VISITING
[2019-07-06] MEDS ORDERED: POTASSIUM CHLORIDE 40 MEQ, LIDOCAINE 1% 25 MG in NACL 0.9% 250 ML IV SCH (15:30)
[2019-07-06 16:00] VITALS: BP 130/71
[2019-07-06] MEDS: HYDROcodone/APAP 7.5/325 MG 1 TAB PO PRN ×2 (16:36→21:37)
--- NOTE | 2019-07-06 19:25 | NUR ---
ENDORSED PT TO TRIMMER SAWYER NURSE IN STABLE CONDITION
--- NOTE | 2019-07-06 19:26 | NUR ---
RECEIVED PATIENT FROM AM SHIFT IN STABLE CONDITION FOR CONTINUITY OF CARE. TELE PATIENT. ABLE TO MAKE NEEDS KNOWN. RESPIRATIONS EVEN, UNLABORED. IV SITE TO LEFT UPPER ARM 20G PATENT/INTACT, INFUSING FLUIDS WELL. NO C/O PAIN. NO S/SX ACUTE DISTRESS. SEIZURE PRECAUTIONS IN PLACE. CALL LIGHT WITHIN REACH. WILL CONTINUE TO MONITOR.
[2019-07-06 20:00] VITALS: BP 115/65
--- NOTE | 2019-07-06 21:37 | NUR ---
PATIENT C/O ACHING PAIN 11/20. MEDICATED ORDERED. WILL CONTINUE TO MONITOR.
--- NOTE | 2019-07-06 22:37 | NUR ---
PATIENT IS ASLEEP. NO C/O PAIN. NO S/SX ACUTE DISTRESS. CALL LIGHT WITHIN REACH. WILL CONTINUE TO MONITOR.
[2019-07-07] VITALS: BP 129/69
--- NOTE | 2019-07-07 00:15 | NUR ---
PATIENT AWAKE AND IN STABLE CONDITION. NO C/O PAIN. NO S/SX ACUTE DISTRESS. MULTIPLE EPISODES OF CONFUSION WITH YELLING OUT FOR "MOHIT". REORIENTED PATIENT FREQUENTLY AND EDUCATED ABOUT USE OF CALL LIGHT. PATIENT VERBALIZED UNDERSTANDING BUT NEEDS REINFORCEMENT. ALL OTHER NEEDS MET. CALL LIGHT WITHIN REACH. WILL CONTINUE TO MONITOR.
--- NOTE | 2019-07-07 02:20 | NUR ---
AWAKE, YELLING FOR MOHIT. REPOSITIONED FOR COMFORT. NO C/O PAIN. NO S/SX ACUTE DISTRESS. CALL LIGHT WITHIN REACH. WILL CONTINUE TO MONITOR.
[2019-07-07] MEDS: NACL 0.45% 1,000 ML IV SCH (02:39)
[2019-07-07] MEDS: HYDROcodone/APAP 7.5/325 MG 1 TAB PO PRN (03:06)
--- NOTE | 2019-07-07 03:15 | NUR ---
PATIENT REFUSED MEDICATION AT THE LAST MOMENT. MEDICATION WAS CRUSHED IN APPLESAUCE AND ABOUT TO ADMINISTER AND PATIENT TOLD ME IN UNKIND WORDS NOT TO GIVE. MEDICATION. RESPECTED PATIENT'S WISHES. Addendum: 07/07/19 at 0317 by Ashia Duran RN WITNESSED DISPOSAL OF MEDICATION BY JAVY TENA.
[2019-07-07 04:00] VITALS: BP 140/47
--- NOTE | 2019-07-07 04:37 | NUR ---
LEFT UPPER ARM IV SITE INFILTRATED. REMOVED IV, CATHETER INTACT. NO S/SX BLEEDING AT SITE. NEW IV STARTED ON RIGHT WRIST. GOOD BLOOD RETURN. PATIENT VERBALIZED NO PAIN AT SITE. NO S/SX ACUTE DISTRESS. CALL LIGHT WITHIN REACH. WILL CONTINUE TO MONITOR.
[2019-07-07] MEDS: PIPERACILLIN/TAZOBACTAM 3.375 GM in DEXTROSE 5% 50 ML IV SCH ×4 (05:09→23:18)
--- NOTE | 2019-07-07 07:15 | NUR ---
RECEIVED REPORT FROM CLEAT BLANKER NURSE FOR CONTINUITY OF CARE. PT IN STABLE CONDITION. RESPIRATIONS EVEN AND UNLABORED. IV INTACT AND PATENT. SAFETY MEASURES IN PLACE. BED IN LOW POSITION. BED ALARM ON. CALL LIGHT AT BEDSIDE. WILL CONTINUE TO MONITOR.
[2019-07-07] MEDS: ALBUTEROL SULFATE/IPRATROPIU 3 ML SOL IH SCH ×3 (07:16→19:06)
[2019-07-07 07:25] LABS: BASOPHILS % (AUTO) 0.5 % (0.0-2.0); EOSINOPHILS # (AUTO) 0.3 K/uL (0-0.4); EOSINOPHILS % (AUTO) 4.4 % (0.0-4.0); HEMATOCRIT 29.2 % (36-48); HEMOGLOBIN 9.1 g/dL (12.0-16.0); LYMPHOCYTES # (AUTO) 1.8 K/uL (2.5-16.5); LYMPHOCYTES % (AUTO) 25.1 % (20.5-51.1); MEAN CORPUSCULAR HEMOGLOBIN 22 pg (27-31); MEAN CORPUSCULAR HGB CONC 31 g/dL (33-37); MEAN CORPUSCULAR VOLUME 70.3 fL (80-94); MONOCYTES # (AUTO) 0.9 K/uL (0.8-1.0); MONOCYTES % (AUTO) 12.5 % (1.7-9.3); NEUTROPHILS # (AUTO) 4.2 K/uL (1.8-7.7); NEUTROPHILS % (AUTO) 57.5 % (42.2-75.2); PLATELET COUNT (AUTO) 365 K/uL (140-450); RED BLOOD CELL COUNT(AUTO) 4.15 MIL/uL (4.20-5.40); RED CELL DISTRIBUTION WIDTH 14.9 % (11.6-13.7); WHITE BLOOD COUNT (AUTO) 7.2 K/uL (4.8-10.8)
[2019-07-07 07:39] LABS: MAGNESIUM 2.1 mg/dL (1.8-2.4); PHOSPHORUS 2.2 mg/dL (2.5-4.9)
[2019-07-07 07:40] LABS: ANION GAP 9.6 (8-16); CARBON DIOXIDE 30.4 mmol/L (21-32); CREATININE 0.5 mg/dL (0.6-1.3)
[2019-07-07 08:00] VITALS: BP 149/86
[2019-07-07] MEDS: ASCORBIC ACID 500 MG/5 ML ORASYR GT SCH ×2 (09:00→09:38)
[2019-07-07] MEDS: FERROUS SULFATE 300 MG/5 ML UDC GT SCH ×2 (09:00→09:35)
[2019-07-07] MEDS: ATORVASTATIN 20 MG TAB PO SCH (09:38)
[2019-07-07] MEDS: levETIRAcetam 1,500 MG in NACL 0.9% 100 ML IV SCH ×2 (09:38→21:48)
[2019-07-07] MEDS: DOCUSATE SODIUM 100 MG GELCAP PO SCH ×2 (09:39→21:49)
[2019-07-07] MEDS: FAMOTIDINE 20 MG TAB PO SCH (09:39)
[2019-07-07] MEDS: HALOPERIDOL 1 MG TAB PO SCH ×2 (09:39→20:03)
--- NOTE | 2019-07-07 09:45 | NUR ---
GAVE ORDERED DUE MEDICATIONS AT THIS TIME. PT TOLERATED WELL. PT IN STABLE CONDITION. BED IN LOW POSITION. CALL LIGHT AT BEDSIDE. BED ALARM ON. WILL CONTINUE TO MONITOR.
--- NOTE | 2019-07-07 10:29 | NUR ---
CHANGED LINEN AND CLOTHING AFTER URINATION. PT TOLERATED WELL. PT IN STABLE CONDITION. BED IN LOW POSITION. CALL LIGHT AT BEDSIDE. BED ALARM ON. WILL CONTINUE TO MONITOR.
[2019-07-07 12:00] VITALS: BP 155/90
--- NOTE | 2019-07-07 12:45 | NUR ---
IV REMOVED BY PT. NO INJURY NOTED AT SITE. PT DENIES PAIN. LUMEN INTACT.
--- NOTE | 2019-07-07 14:10 | NUR ---
NEW IV 22G RIGHT FOREARM PLACED AT THIS TIME. PT TOLERATED WELL.
[2019-07-07] MEDS ORDERED: POTASSIUM CHLORIDE 40 MEQ, LIDOCAINE MPF 1% 25 MG in NACL 0.9% 250 ML IV ONE (14:30)
--- NOTE | 2019-07-07 15:10 | NUR ---
CLEANED AFTER URINATION. PT TOLERATED WELL. BED IN LOW POSITION. CALL LIGHT AT BEDSIDE. WILL CONTINUE TO MONITOR.
[2019-07-07] MEDS: SODIUM PHOS / POTASSIUM PHOS 1 PKT PDR PO SCH ×2 (15:11→21:49)
[2019-07-07 16:00] VITALS: BP 132/69
--- NOTE | 2019-07-07 17:03 | NUR ---
07/07/19 RD FOLLOW UP COMPLETED PLEASE REFER TO NUTRITION ASSESSMENT UNDER CARE ACTIVITY FOR ESTIMATED NUTRITIONAL NEEDS. 1. CONTINUE CARDIAC PUREED DIET WITH NECTAR THICK LIQUID TOLERATED 2. RECOMMEND ENSURE VANILLA NECTAR THICK 3. RD TO FOLLOW-UP 2-3 DAYS, HIGH RISK GAVIOTA MARIO, RD
--- NOTE | 2019-07-07 17:33 | NUR ---
FAMILY AT BEDSIDE. PT IN STABLE CONDITION.
--- NOTE | 2019-07-07 19:14 | NUR ---
RECEIVED PT ON ROOM AIR WITH SP02 OF 95% AND COARSE BREATH SOUNDS. NO RESPIRATORY DISTRESS NOTED AT THIS TIME. HHN TX GIVEN ORDERED WITH NO ADVERSE REACTION. FAMILY AT BEDSIDE. WILL CONTINUE TO MONITOR PT
--- NOTE | 2019-07-07 19:30 | NUR ---
GAVE REPORT TO DROP PIT WORKER NURSE FOR CONTINUITY OF CARE. PT IN STABLE CONDITION.
--- NOTE | 2019-07-07 19:32 | NUR ---
RECEIVED PATIENT FROM AM SHIFT IN STABLE CONDITION FOR CONTINUITY OF CARE. TELE PATIENT. RESPIRATIONS EVEN, UNLABORED. IV SITE TO RIGHT FOREARM PATENT/INTACT. NO S/SX ACUTE DISTRESS. SEIZURE PRECAUTIONS IN PLACE. CALL LIGHT WITHIN REACH. WILL CONTINUE TO MONITOR.
[2019-07-07 20:00] VITALS: BP 138/84
[2019-07-07] MEDS: HYDROcodone/APAP 5/325 MG 1 TAB TAB PO PRN (20:02)
--- NOTE | 2019-07-07 20:02 | NUR ---
PATIENT C/O ACHING LEG PAIN 11/20. MEDICATED ORDERED. REPOSITIONED FOR COMFORT. CALL LIGHT WITHIN REACH. WILL CONTINUE TO MONITOR.
--- NOTE | 2019-07-07 21:02 | NUR ---
REASSESSED PATIENT'S PAIN LEVEL. PATIENT IS SLEEPING. NO S/SX ACUTE DISTRESS. CALL LIGHT WITHIN REACH. WILL CONTINUE TO MONITOR.
--- NOTE | 2019-07-07 23:27 | NUR ---
MADE ROUNDS, PATIENT CONTINUES IN STABLE CONDITION. NO C/O PAIN . NO S/SX ACUTE DISTRESS. CALL LIGHT WITHIN REACH. WILL CONTINUE TO MONITOR.
[2019-07-08] VITALS: BP 128/53
--- NOTE | 2019-07-08 01:15 | NUR ---
PATIENT CONTINUES IN STABLE CONDITION. DUE MEDS GIVEN. NO C/O PAIN. NO S/SX ACUTE DISTRESS. CALL LIGHT WITHIN REACH. WILL CONTINUE TO MONITOR.
--- NOTE | 2019-07-08 03:00 | NUR ---
MADE ROUNDS. PATIENT IS AWAKE AND IN STABLE CONDITION. NO C/O PAIN. NO S/SX ACUTE DISTRESS. CALL LIGHT WITHIN REACH. WILL CONTINUE TO MONITOR.
[2019-07-08 04:00] VITALS: BP 147/63
--- NOTE | 2019-07-08 04:30 | NUR ---
PATIENT AWAKE AND IN STABLE CONDITION. REPOSITIONED FOR COMFORT. PERICARE PROVIDED. NO C/O PAIN. NO S/SX ACUTE DISTRESS. CALL LIGHT WITHIN REACH. WILL CONTINUE TO MONITOR.
[2019-07-08] MEDS: PIPERACILLIN/TAZOBACTAM 3.375 GM in DEXTROSE 5% 50 ML IV SCH ×4 (05:17→23:26)
--- NOTE | 2019-07-08 07:37 | NUR ---
ENDORSED PATIENT IN STABLE CONDITION TO AM SHIFT NURSE FOR CONTINUITY OF CARE.
[2019-07-08] MEDS: ALBUTEROL SULFATE/IPRATROPIU 3 ML SOL IH SCH ×3 (07:51→18:51)
[2019-07-08 08:00] VITALS: BP 158/89
--- NOTE | 2019-07-08 08:35 | NUR ---
NEW IV PLACED 22G LFA.PT TOLERATED WELL. PT REMOVED OLD IV, LUMEN INTACT, NO INJURY TO SITE NOTED AT THIS TIME. PT IN STABLE CONDITION. Addendum: 07/08/19 at 0839 by Alejandra Mancera RN NEW IV SITE RIGHT FOREARM 22G.
[2019-07-08] MEDS: FERROUS SULFATE 300 MG/5 ML UDC GT SCH ×2 (08:45→09:00)
[2019-07-08] MEDS: ASCORBIC ACID 500 MG/5 ML ORASYR GT SCH ×2 (08:45→09:00)
[2019-07-08] MEDS: HALOPERIDOL 1 MG TAB PO SCH ×3 (08:45→20:53)
[2019-07-08] MEDS: FAMOTIDINE 20 MG TAB PO SCH ×2 (08:46→09:00)
[2019-07-08] MEDS: ATORVASTATIN 20 MG TAB PO SCH ×2 (08:46→09:00)
[2019-07-08] MEDS: DOCUSATE SODIUM 100 MG GELCAP PO SCH ×3 (08:46→20:52)
[2019-07-08] MEDS: levETIRAcetam 1,500 MG in NACL 0.9% 100 ML IV SCH ×2 (08:51→20:53)
--- NOTE | 2019-07-08 09:00 | NUR ---
PT REFUSED ORAL MEDICATIONS AT THIS TIME. WILL TRY AGAIN.
[2019-07-08 09:59] LABS: BASOPHILS % (AUTO) 0.8 % (0.0-2.0); EOSINOPHILS # (AUTO) 0.3 K/uL (0-0.4); EOSINOPHILS % (AUTO) 4.5 % (0.0-4.0); HEMATOCRIT 30.8 % (36-48); HEMOGLOBIN 9.5 g/dL (12.0-16.0); LYMPHOCYTES # (AUTO) 1.4 K/uL (2.5-16.5); LYMPHOCYTES % (AUTO) 24.4 % (20.5-51.1); MEAN CORPUSCULAR HEMOGLOBIN 22 pg (27-31); MEAN CORPUSCULAR HGB CONC 31 g/dL (33-37); MEAN CORPUSCULAR VOLUME 70.9 fL (80-94); MONOCYTES # (AUTO) 0.8 K/uL (0.8-1.0); MONOCYTES % (AUTO) 13.6 % (1.7-9.3); NEUTROPHILS # (AUTO) 3.3 K/uL (1.8-7.7); NEUTROPHILS % (AUTO) 56.7 % (42.2-75.2); PLATELET COUNT (AUTO) 418 K/uL (140-450); RED BLOOD CELL COUNT(AUTO) 4.35 MIL/uL (4.20-5.40); RED CELL DISTRIBUTION WIDTH 15.3 % (11.6-13.7); WHITE BLOOD COUNT (AUTO) 5.8 K/uL (4.8-10.8)
[2019-07-08] MEDS: NACL 0.45% 1,000 ML IV SCH (10:00)
--- NOTE | 2019-07-08 10:01 | NUR ---
PT REFUSED 0900 PO MEDICATIONS AT THIS TIME. 2ND ATTEMPT.
[2019-07-08 11:07] LABS: ANION GAP 11.5 (8-16); CARBON DIOXIDE 27.4 mmol/L (21-32); CREATININE 0.5 mg/dL (0.6-1.3)
[2019-07-08 11:10] LABS: POTASSIUM 2.9 mmol/L (3.5-5.1)
[2019-07-08] MEDS ORDERED: POTASSIUM CHLORIDE 10 MEQ TABER PO SCH (11:20)
[2019-07-08 12:00] VITALS: BP 144/84
[2019-07-08 12:05] LABS: MAGNESIUM 2.1 mg/dL (1.8-2.4); PHOSPHORUS 2.3 mg/dL (2.5-4.9)
--- NOTE | 2019-07-08 12:10 | NUR ---
CHANGED PT AFTER URINATION AND SMALL BOWEL MOVEMENT. PT TOLERATED WELL. BED IN LOW POSITION. BED ALARM ON. CLL LIGHT AT BEDSIDE. WILL CONTINUE TO MONITOR.
[2019-07-08] MEDS: HYDROcodone/APAP 5/325 MG 1 TAB TAB PO PRN (12:19)
[2019-07-08] MEDS ORDERED: POTASSIUM CHLORIDE 40 MEQ, LIDOCAINE MPF 1% 25 MG in NACL 0.9% 250 ML IV SCH (12:30)
--- NOTE | 2019-07-08 14:30 | NUR ---
PT SLEEPING AT THIS TIME. RESPIRATIONS EVEN AND UNLABORED. BED IN LOW POSITION. CALL LIGHT AT BEDSIDE. WILL CONTINUE TO MONITOR.
[2019-07-08 16:00] VITALS: BP 147/86
--- NOTE | 2019-07-08 16:16 | NUR ---
ADRIANA RAWLS AT BEDSIDE FOR CONSULT PNA AND UTI. PT IN STABLE CONDITION. FAMILY AT BEDSIDE.
--- NOTE | 2019-07-08 19:00 | NUR ---
RECEIVED PT ON ROOM AIR WITH SP02 OF 96% AND CLEAR DIMINISHED BREATH SOUNDS ON UPPER LOBES. NO RESPIRATORY DISTRESS NOTED AT THIS TIME. HHN TX GIVEN ORDERED WITH NO ADVERSE REACTION. FAMILY AT BEDSIDE. WILL CONTINUE TO MONITOR PT
--- NOTE | 2019-07-08 19:30 | NUR ---
GAVE REPORT TO ELECTRONIC GLUER NURSE TITUS FOR CONTINUITY OF CARE. PT IN STABLE CONDITION.
--- NOTE | 2019-07-08 19:35 | NUR ---
RECEIVED REPORT FROM AM SHIFT. PT A0 X2 EPISODES OF CONFUSION NOTED. S/P CHEST TUBE TO RIGHT SIDE. ON ROOM AIR. SR ON MONITOR. REGULAR NECTAR THICK DIET. INCONTINENT TO BOWEL AND BLADDER. UNABLE TO AMBULATE. IV SITE TO [facility]. BED IN LOWEST POSITION. CALL LIGHT WITHIN REACH. WILL CONTINUE TO MONITOR.
[2019-07-08 20:00] VITALS: BP 135/81
--- NOTE | 2019-07-08 22:56 | NUR ---
PT CONFUSED ATTEMPTING TO PULL OUT IV LINES. REORIENTATION PROVIDED. EXPLAINED RISK VS. BENEFITS.
[2019-07-09] VITALS: BP 131/74
--- NOTE | 2019-07-09 00:17 | NUR ---
PT AFEBRILE. NO SIGNS OF ACUTE DISTRESS AT THIS TIME. BED IN LOWEST POSITION. WILL CONTINUE TO MONITOR.
--- NOTE | 2019-07-09 02:40 | NUR ---
NO SIGNS OF ACUTE DISTRESS. INTERMITTENT SCREAMS NOTED.
--- NOTE | 2019-07-09 03:40 | NUR ---
PT SCREAMING AT THIS TIME. REORIENTED AT THIS TIME.
[2019-07-09 04:00] VITALS: BP 126/84
[2019-07-09] MEDS: PIPERACILLIN/TAZOBACTAM 3.375 GM in DEXTROSE 5% 50 ML IV SCH ×4 (05:23→23:14)
--- NOTE | 2019-07-09 06:00 | NUR ---
PT SCREAMING AT THIS TIME AGITATED AND THRASHING IN BED. REORIENTED TO UNIT AND ADDRESS CONCERNS REGARDING IVS.
[2019-07-09] MEDS: HYDROcodone/APAP 5/325 MG 1 TAB TAB PO PRN (06:45)
--- NOTE | 2019-07-09 06:45 | NUR ---
PT CO PAIN AT THIS TIME. ADMINISTERED NORCO 5MG PO. WILL CONTINUE TO EVALUATE PAIN
--- NOTE | 2019-07-09 07:25 | NUR ---
ENDORSED CARE TO INCOMING SHIFT RN FOR CONTINUITY OF CARE
--- NOTE | 2019-07-09 07:26 | NUR ---
RECEIVED PATIENT FROM TELEVISION PARTS TESTER NURSE. PATIENT IS AAOX1 TO NAME. RESPIRATIONS EVEN AND UNLABORED, ROOM AIR. VISIBLE CHEST RISE NOTED. ON TELE MONITORING. SKIN TEARS NOTED. SKIN WARM AND DRY. IV IN THE R WRIST G22 RUNNING 1/2 AT 30 ML/HR. IV PATENT AND INTACT. BED IN LOW POSITION. CALL LIGHT IS WITHIN REACH. FALL AND ASPIRATION PRECAUTIONS IN PLACE. WILL CONTINUE TO MONITOR
[2019-07-09 08:00] VITALS: BP 135/86
[2019-07-09] MEDS: ALBUTEROL SULFATE/IPRATROPIU 3 ML SOL IH SCH ×3 (08:17→21:31)
--- NOTE | 2019-07-09 08:40 | NUR ---
GIVEN MORNING MEDICATION CRUSHED AND MIXED WITH APPLEASAUCE. KEPPRA VIA IVPB. EXPLAINED TO PATIENT MEDS. PATIENT VERBALIZED UNDERSTANDING. BED IN LOW. CALL LIGHT IS WITHIN REACH. WILL CONTINUE TO MONITOR
[2019-07-09] MEDS: FAMOTIDINE 20 MG TAB PO SCH (08:41)
[2019-07-09] MEDS: FERROUS SULFATE 300 MG/5 ML UDC GT SCH (08:42)
[2019-07-09] MEDS: ASCORBIC ACID 500 MG/5 ML ORASYR GT SCH (08:43)
[2019-07-09] MEDS: HALOPERIDOL 1 MG TAB PO SCH ×2 (08:43→20:11)
[2019-07-09] MEDS: ATORVASTATIN 20 MG TAB PO SCH (08:44)
[2019-07-09] MEDS: ACETAMINOPHEN 325 MG TAB PO PRN (08:48)
[2019-07-09] MEDS: levETIRAcetam 1,500 MG in NACL 0.9% 100 ML IV SCH (08:55)
[2019-07-09] MEDS: DOCUSATE SODIUM 100 MG GELCAP PO SCH ×2 (08:58→21:59)
[2019-07-09] MEDS: NACL 0.45% 1,000 ML IV SCH (10:37)
--- NOTE | 2019-07-09 11:50 | NUR ---
PATIENT IS TRYING TO PULL IV OUT. EDUCATED PATIENT THAT SHE NEEDS IT. PATIENT NEEDS REINFORCEMENT
[2019-07-09 12:00] VITALS: BP 132/83
--- NOTE | 2019-07-09 12:14 | NUR ---
GIVEN ZOSYN VIA IVPB. EXPLAINED TO PATIENT MED. PATIENT VERBALIZED UNDERSTANDING. WILL CONTINUE TO MONITOR
--- NOTE | 2019-07-09 13:32 | NUR ---
GIVEN MORNING MEDICATION CRUSHED AND MIXED WITH APPLEASAUCE. RADHA VIA IVPB. EXPLAINED TO PATIENT MEDS. PATIENT VERBALIZED UNDERSTANDING. BED IN LOW. CALL LIGHT IS WITHIN REACH. WILL CONTINUE TO MONITOR Addendum: 07/09/19 at 1333 by Princess Eugenie Damico RN WRONG TIME
--- NOTE | 2019-07-09 13:44 | NUR ---
*S.T. TREATMENT NOTE* S: Pt seen at bedside, being fed by ANALYTICAL LEAD lunch tray, in which textures were unchanged despite recommendation on 07/06/19 to advance to mechanical soft ground and nectar thick liquids. Pt reported she is "sick of this food." JAVY Campbell notified that diet change was not made. Pt denied pain. O: P.O. trials puree and honey thick liquids observed. Pt also given P.O. trials thin liquids via straw by this clinician. No overt s/s aspiration. A: Pt's swallow function has improved, and appears to be functioning at baseline level. P: Recommend advance diet textures to mechanical soft chopped, thin liquids. Endorsed to JAVY Campbell. Will DC from at this time. DC to [facility]. Time 5868-0433
--- NOTE | 2019-07-09 14:40 | NUR ---
DR. SAWYER MADE ROUNDS. ASSESSED PATIENT. PATIENT'S 'S AT BEDSIDE. WILL CONTINUE TO MONITOR
[2019-07-09 16:00] VITALS: BP 137/94
--- NOTE | 2019-07-09 17:26 | NUR ---
GIVEN ZOSYN VIA IVPB. EXPLAINED TO PATIENT MED. PATIENT VERBALIZED UNDERSTANDING. BED IN LOW POSITION. CALL LIGHT IS WITHIN REACH. WILL CONTINUE TO MONITOR
--- NOTE | 2019-07-09 18:32 | NUR ---
PATIENT IS SLEEPING AT THIS TIME. NO SIGNS OF DISTRESS NOTED. BED IN LOW POSITION. CALL LIGHT IS WITHIN REACH.
--- NOTE | 2019-07-09 19:08 | NUR ---
RECEIVED PATIENT IN STABLE CONDITION FROM AM SHIFT NURSE FOR CONTINUITY OF CARE. PATIENT IS ABLE TO MAKE NEEDS KNOWN. RESPIRATIONS EVEN, UNLABORED. SKIN WARM, DRY TO TOUCH. IV SITE TO LEFT AC 20G PATENT/INTACT, INFUSING FLUIDS WELL. SEIZURE PRECAUTIONS IN PLACE. NO C/O PAIN. NO S/SX ACUTE DISTRESS. CALL LIGHT WITHIN REACH. WILL CONTINUE TO MONITOR.
--- NOTE | 2019-07-09 19:09 | NUR ---
ENDORSED PATIENT TO ASSEMBLER MECHANICAL ORDNANCE NURSE FOR CONTINUITY OF CARE. PATIENT IS IN STABLE CONDITION.
[2019-07-09 20:00] VITALS: BP 144/88
[2019-07-09] MEDS: levETIRAcetam 500 MG TAB PO SCH (20:13)
[2019-07-09 21:39] LABS: ANION GAP 13.1 (8-16); CARBON DIOXIDE 26.7 mmol/L (21-32); CREATININE 0.7 mg/dL (0.6-1.3)
[2019-07-09 21:43] LABS: POTASSIUM 2.8 mmol/L (3.5-5.1)
--- NOTE | 2019-07-09 21:43 | NUR ---
RECEIVED PATIENT ON ROOM AIR, PULSE OX SAT 98%. SCHEDULED BREATHING TREATMENT ADMINISTERED. PATIENT CONTINUOUSLY REMOVES MASK TX. NO ADVERSE SIDE EFFECTS. NO ACUTE RESPIRATORY DISTRESS NOTED. WILL CONTINUE TO MONITOR.
--- NOTE | 2019-07-09 21:45 | NUR ---
PATIENT WITH A CRITICAL LOW POTASSIUM 2.8, NOTIFIED DR RENO WITH NEW ORDER FOR POTASSIUM 80 MEQ BY MOUTH.
[2019-07-09] MEDS ORDERED: POTASSIUM CHLORIDE 20% 40 MEQ/15 ML UDC PO SCH (22:00)
--- NOTE | 2019-07-09 23:00 | NUR ---
MADE ROUNDS. PATIENT AWAKE AND IN STABLE CONDITION. NO C/O PAIN. NO S/SX ACUTE DISTRESS. INCONTINENT CARE PROVIDED WITH MINE ENGINEERING SUPERVISOR AT BEDSIDE. REPOSITIONED FOR COMFORT. CALL LIGHT WITHIN REACH. WILL CONTINUE TO MONITOR.
[2019-07-10] VITALS: BP 142/78
--- NOTE | 2019-07-10 01:37 | NUR ---
MADE ROUNDS. PATIENT IS AWAKE IN BED AND IN STABLE CONDITION. NO C/O PAIN. NO S/SX ACUTE DISTRESS. CALL LIGHT WITHIN REACH. WILL CONTINUE TO MONITOR.
--- NOTE | 2019-07-10 03:12 | NUR ---
AWAKE AND IN STABLE CONDITION. NO C/O PAIN. NO S/SX ACUTE DISTRESS. CALL LIGHT WITHIN REACH. WILL CONTINUE TO MONITOR.
[2019-07-10 04:00] VITALS: BP 142/80
[2019-07-10] MEDS: PIPERACILLIN/TAZOBACTAM 3.375 GM in DEXTROSE 5% 50 ML IV SCH ×4 (05:00→23:10)
--- NOTE | 2019-07-10 05:48 | NUR ---
PATIENT CONTINUES IN STABLE CONDITION. INCONTINENT CARE PROVIDED WITH FLAKE CUTTER OPERATOR AT BEDSIDE. X1 BM. NO C/O PAIN. NO S/SX ACUTE DISTRESS. DUE MEDS GIVEN. CALL LIGHT WITHIN REACH. WILL CONTINUE TO MONITOR.
[2019-07-10] MEDS: ALBUTEROL SULFATE/IPRATROPIU 3 ML SOL IH SCH ×2 (06:37→13:48)
--- NOTE | 2019-07-10 07:23 | NUR ---
ENDORSED PATIENT TO AM SHIFT NURSE IN STABLE CONDITION FOR CONTINUITY OF CARE.
--- NOTE | 2019-07-10 07:25 | NUR ---
RECEIVED PATIENT FROM JOB DEVELOPER FOR DEAF ADULTS NURSE. PATIENT IS AAOX1 TO NAME. RESPIRATIONS EVEN AND UNLABORED, ROOM AIR. VISIBLE CHEST RISE NOTED. ON TELE MONITORING. SKIN TEARS NOTED. SKIN WARM AND DRY. IV IN THE R WRIST G22 RUNNING 1/2 AT 30 ML/HR. IV PATENT AND INTACT. BED IN LOW POSITION. CALL LIGHT IS WITHIN REACH. FALL AND SEIZURES PRECAUTIONS IN PLACE. WILL CONTINUE TO MONITOR
[2019-07-10 07:42] LABS: BASOPHILS % (AUTO) 0.7 % (0.0-2.0); EOSINOPHILS # (AUTO) 0.1 K/uL (0-0.4); EOSINOPHILS % (AUTO) 1.6 % (0.0-4.0); HEMATOCRIT 33.6 % (36-48); HEMOGLOBIN 10.5 g/dL (12.0-16.0); LYMPHOCYTES # (AUTO) 1.1 K/uL (2.5-16.5); LYMPHOCYTES % (AUTO) 22.4 % (20.5-51.1); MEAN CORPUSCULAR HEMOGLOBIN 22 pg (27-31); MEAN CORPUSCULAR HGB CONC 31 g/dL (33-37); MEAN CORPUSCULAR VOLUME 71.3 fL (80-94); MONOCYTES # (AUTO) 0.6 K/uL (0.8-1.0); MONOCYTES % (AUTO) 11.8 % (1.7-9.3); NEUTROPHILS # (AUTO) 3.1 K/uL (1.8-7.7); NEUTROPHILS % (AUTO) 63.5 % (42.2-75.2); PLATELET COUNT (AUTO) 503 K/uL (140-450); RED CELL DISTRIBUTION WIDTH 15.6 % (11.6-13.7); WHITE BLOOD COUNT (AUTO) 4.9 K/uL (4.8-10.8)
[2019-07-10 07:44] LABS: ANION GAP 12.5 (8-16); CARBON DIOXIDE 28.1 mmol/L (21-32); CREATININE 0.6 mg/dL (0.6-1.3); POTASSIUM 3.6 mmol/L (3.5-5.1)
[2019-07-10 07:54] LABS: MAGNESIUM 2.1 mg/dL (1.8-2.4)
[2019-07-10 08:00] VITALS: BP 153/64
[2019-07-10] MEDS: HALOPERIDOL 1 MG TAB PO SCH ×2 (08:23→20:06)
[2019-07-10] MEDS: ATORVASTATIN 20 MG TAB PO SCH (08:23)
[2019-07-10] MEDS: levETIRAcetam 500 MG TAB PO SCH ×2 (08:23→20:09)
[2019-07-10] MEDS: FAMOTIDINE 20 MG TAB PO SCH (08:23)
[2019-07-10] MEDS: ASCORBIC ACID 500 MG/5 ML ORASYR GT SCH (08:24)
[2019-07-10] MEDS: FERROUS SULFATE 300 MG/5 ML UDC GT SCH (08:24)
[2019-07-10] MEDS: DOCUSATE SODIUM 100 MG GELCAP PO SCH ×2 (08:32→20:40)
--- NOTE | 2019-07-10 08:33 | NUR ---
GIVE MORNING MEDICATIONS PO. HEPARIN SUBQ IN THE LEFT UPPER ARM PLATELET 503. PATIENT TOLERATED WELL. EXPLAINED TO PATIENT MEDS. PATIENT VERBALIZED UNDERSTANDING.
[2019-07-10] MEDS: NACL 0.45% 1,000 ML IV SCH (10:00)
[2019-07-10 12:00] VITALS: BP 154/72
--- NOTE | 2019-07-10 12:00 | NUR ---
CHANGED OPTIFOAM DRESSING. APPLIED Z-GUARD IN THE GROAN AND BUTTOCK AREA.
--- NOTE | 2019-07-10 12:33 | NUR ---
GIVEN ZOSYN VIA IVPB. EXPLAINED TO PATIENT MED. PATIENT VERBALIZED UNDERSTANDING. BED IN LOW POSITION. CALL LIGHT IS WITHIN REACH. WILL CONTINUE TO MONITOR
--- NOTE | 2019-07-10 13:54 | NUR ---
PATIENT IS GETTING BREATHING TX AT THIS TIME.
[2019-07-10] MEDS: HYDROcodone/APAP 5/325 MG 1 TAB TAB PO PRN ×2 (13:57→20:09)
--- NOTE | 2019-07-10 13:57 | NUR ---
GIVEN NORCO FOR 9/10 LEG PAIN. EXPLAINED TO PT. MED. PATIENT VERBALIZED UNDERSTANDING. WILL CONTINUE TO MONITOR
[2019-07-10] MEDS ORDERED: ALBUTEROL SULFATE/IPRATROPIU 3 ML SOL IH PRN (14:10)
--- NOTE | 2019-07-10 15:58 | NUR ---
07/10/19 RD FOLLOW UP COMPLETED PLEASE REFER TO NUTRITION ASSESSMENT UNDER CARE ACTIVITY FOR ESTIMATED NUTRITIONAL NEEDS. 1. CONTINUE MECHANICAL SOFT, ENSURE BID DIET TOLERATED 2. ENCOURAGE PO INTAKE 3. RD TO FOLLOW-UP 2-3 DAYS, HIGH RISK RUSTY MOORE, RD
[2019-07-10 16:00] VITALS: BP 108/73
[2019-07-10] MEDS: SODIUM PHOS / POTASSIUM PHOS 1 PKT PDR PO SCH (16:04)
--- NOTE | 2019-07-10 16:09 | NUR ---
GIVEN PHOSLO MIXED WITH PRUNE JUICE. PATIENT TOLERATED WELL. EXPLAINED TO PATIENT AND MED. BOTH VERBALIZED UNDERSTANDING. WILL CONTINUE TO MONITOR
--- NOTE | 2019-07-10 17:39 | NUR ---
P.T. NOTES Pt SLEEPING, WOKE UP, IN ROOM, Pt DECLINED TO PARTICIPATE W/ P.T., FEELS TIRED & WANTS TO REST, EXPLAINED RISKS OF BEDBOUND, Pt STILL DECLINED, REPORTS HE HAS BEEN HELPING IN BED EXER; APPRECIATIVE; FF UP WHEN PARTICIPATIVE. 07/10/19 Hgb=10.0 07/09/19 POTASSIUM=2.8
--- NOTE | 2019-07-10 18:01 | NUR ---
GIVEN ZOSYN VIA IVPB. EXPLAINED TO PATIENT MED. PATIENT VERBALIZED UNDERSTANDING. BED IN LOW POSITION. CALL LIGHT IS WITHIN REACH. WILL CONTINUE TO MONITOR
--- NOTE | 2019-07-10 18:25 | NUR ---
PATIENT IS SLEEPING AT THIS TIME. NO SIGNS OF DISTRESS NOTED. CALL LIGHT IS WITHIN REACH. BED IN LOW POSITION.
--- NOTE | 2019-07-10 19:19 | NUR ---
RECEIVED PATIENT IN STABLE CONDITION FROM AM SHIFT NURSE FOR CONTINUITY OF CARE. TELE PATIENT, ABLE TO MAKE NEEDS KNOWN. IV SITE TO RIGHT FOREARM 22G PATENT/INTACT. IV FLUIDS INFUSING WELL. NO C/O PAIN AT THIS TIME. NO S/SX ACUTE DISTRESS. , MOHIT, AT BEDSIDE. CALL LIGHT WITHIN REACH. WILL CONTINUE TO MONITOR.
--- NOTE | 2019-07-10 19:20 | NUR ---
ENDORSED PATIENT TO HEAD REFRIGERATING ENGINEER NURSE FOR CONTINUITY OF CARE. PATIENT IS IN STABLE CONDITION
[2019-07-10 20:00] VITALS: BP 117/72
--- NOTE | 2019-07-10 20:09 | NUR ---
PATIENT C/O ACHING BACK PAIN 11/20. MEDICATED ORDERED. CALL LIGHT WITHIN REACH. WILL CONTINUE TO MONITOR.
--- NOTE | 2019-07-10 21:09 | NUR ---
REASSESSED PATIENT'S PAIN LEVEL, PATIENT IS ASLEEP. NO S/SX ACUTE DISTRESS. CALL LIGHT WITHIN REACH. WILL CONTINUE TO MONITOR.
--- NOTE | 2019-07-10 22:15 | NUR ---
PATIENT AWAKE AND REQUESTING TO BE REPOSITIONED. ALL OTHER NEEDS MET. NO C/O PAIN AT THIS TIME. NO S/SX ACUTE DISTRESS. CALL LIGHT WITHIN REACH. WILL CONTINUE TO MONITOR.
[2019-07-11] VITALS: BP 116/76
--- NOTE | 2019-07-11 | NUR ---
MADE ROUNDS. PATIENT ASLEEP AND IN STABLE CONDITION. NO C/O PAIN. NO S/SX ACUTE DISTRESS. DUE MEDS GIVEN. CALL LIGHT WITHIN REACH. WILL CONTINUE TO MONITOR.
[2019-07-11] MEDS: HYDROcodone/APAP 5/325 MG 1 TAB TAB PO PRN ×3 (02:16→23:35)
--- NOTE | 2019-07-11 02:16 | NUR ---
PATIENT C/O ACHING BACK PAIN 11/20. MEDICATED ORDERED. REPOSITIONED FOR COMFORT. CALL LIGHT WITHIN REACH. WILL CONTINUE TO MONITOR.
--- NOTE | 2019-07-11 03:16 | NUR ---
REASSESSED PAIN LEVEL. PATIENT IS ASLEEP. CONTINUES IN STABLE CONDITION. NO S/SX ACUTE DISTRESS NOTED. CALL LIGHT WITHIN REACH. WILL CONTINUE TO MONITOR.
[2019-07-11 04:00] VITALS: BP 121/66
[2019-07-11] MEDS: NACL 0.45% 1,000 ML IV SCH (04:29)
[2019-07-11] MEDS: PIPERACILLIN/TAZOBACTAM 3.375 GM in DEXTROSE 5% 50 ML IV SCH ×3 (05:00→18:33)
--- NOTE | 2019-07-11 05:01 | NUR ---
PATIENT IS ASLEEP AND IN STABLE CONDITION. NO C/O PAIN. NO S/SX ACUTE DISTRESS. CALL LIGHT WITHIN REACH. WILL CONTINUE TO MONITOR.
--- NOTE | 2019-07-11 06:11 | NUR ---
PATIENT IS AWAKE AND IN STABLE CONDITION. NO C/O PAIN. NO S/SX ACUTE DISTRESS. CALL LIGHT WITHIN REACH. WILL CONTINUE TO MONITOR.
[2019-07-11] MEDS: SODIUM PHOS / POTASSIUM PHOS 1 PKT PDR PO SCH ×2 (06:31→06:41)
--- NOTE | 2019-07-11 06:42 | NUR ---
PATIENT REFUSED SOD PHOS PACKET X3. RISKS AND BENEFITS EXPLAINED. NO C/O PAIN. NO S/SX ACUTE DISTRESS. CALL LIGHT WITHIN REACH. WILL CONTINUE TO MONITOR.
--- NOTE | 2019-07-11 07:05 | NUR ---
RECEIVED BEDSIDE REPORT FROM NIGHTSHIFT NURSE. PT RESTING IN BED. FLACC 0. RESPIRATIONS EVEN AND UNLABORED WITH NO SOB OR RESPIRATORY DISTRESS. SKIN WARM AND DRY TO TOUCH. IV SITE IN RFA 22G IS CLEAN, DRY, AND INTACT. SAFETY MEASURES IN PLACE. WILL CONTINUE TO MONITOR
[2019-07-11 07:18] LABS: BASOPHILS # (AUTO) 0.1 K/uL (0.00-0.22); BASOPHILS % (AUTO) 1.1 % (0.0-2.0); EOSINOPHILS # (AUTO) 0.1 K/uL (0-0.4); EOSINOPHILS % (AUTO) 2.5 % (0.0-4.0); HEMATOCRIT 32.7 % (36-48); LYMPHOCYTES % (AUTO) 36.3 % (20.5-51.1); MEAN CORPUSCULAR HEMOGLOBIN 22 pg (27-31); MEAN CORPUSCULAR HGB CONC 31 g/dL (33-37); MEAN CORPUSCULAR VOLUME 71.7 fL (80-94); MONOCYTES # (AUTO) 0.6 K/uL (0.8-1.0); MONOCYTES % (AUTO) 10.5 % (1.7-9.3); NEUTROPHILS # (AUTO) 2.7 K/uL (1.8-7.7); NEUTROPHILS % (AUTO) 49.6 % (42.2-75.2); PLATELET COUNT (AUTO) 484 K/uL (140-450); RED BLOOD CELL COUNT(AUTO) 4.56 MIL/uL (4.20-5.40); WHITE BLOOD COUNT (AUTO) 5.5 K/uL (4.8-10.8)
[2019-07-11 07:53] LABS: ANION GAP 12.5 (8-16); CARBON DIOXIDE 27.5 mmol/L (21-32); CREATININE 0.6 mg/dL (0.6-1.3)
[2019-07-11 08:00] VITALS: BP 117/70
[2019-07-11 08:22] LABS: MAGNESIUM 2.2 mg/dL (1.8-2.4); PHOSPHORUS 2.8 mg/dL (2.5-4.9)
--- NOTE | 2019-07-11 09:05 | NUR ---
ADMINISTERED SCHED MED PRESCRIBED PER MD ORDER. PT TOLERATED WELL. MEDICATION EDUCATION PERFORMED. PT VERBALIZED UNDERSTANDING. SAFETY MEASURES IN PLACE. WILL CONTINUE TO MONITOR
[2019-07-11] MEDS: FERROUS SULFATE 300 MG/5 ML UDC GT SCH (09:13)
[2019-07-11] MEDS: ATORVASTATIN 20 MG TAB PO SCH (09:13)
[2019-07-11] MEDS: levETIRAcetam 500 MG TAB PO SCH ×2 (09:13→20:08)
[2019-07-11] MEDS: ASCORBIC ACID 500 MG/5 ML ORASYR GT SCH (09:14)
[2019-07-11] MEDS: DOCUSATE SODIUM 100 MG GELCAP PO SCH ×2 (09:15→20:08)
[2019-07-11] MEDS: HALOPERIDOL 1 MG TAB PO SCH ×2 (09:15→20:08)
[2019-07-11] MEDS: FAMOTIDINE 20 MG TAB PO SCH (09:15)
--- NOTE | 2019-07-11 09:15 | NUR ---
ADMINISTERED SCHED MED PRESCRIBED PER MD ORDER. PT TOLERATED WELL. PT ALSO COMPLAINED OF PAIN. PRN PAIN MEDICATION ADMINISTERED. MEDICATION EDUCATION PERFORMED. PT VERBALIZED UNDERSTANDING. SAFETY MEASURES IN PLACE. WILL CONTINUE TO MONITOR
--- NOTE | 2019-07-11 11:04 | NUR ---
HOURLY ROUNDING. PT RESTING IN BED. ABLE TO MAKE NEEDS KNOWN. RESPIRATIONS EVEN AND UNLABORED WITH NO SOB OR RESPIRATORY DISTRESS. SKIN WARM AND DRY TO TOUCH. SAFETY MEASURES IN PLACE. WILL CONTINUE TO MONITOR
[2019-07-11 12:00] VITALS: BP 147/81
--- NOTE | 2019-07-11 12:14 | NUR ---
ADMINISTERED SCHED MED PRESCRIBED PER MD ORDER. PT TOLERATED WELL. MEDICATION EDUCATION PERFORMED. PT VERBALIZED UNDERSTANDING. SAFETY MEASURES IN PLACE. WILL CONTINUE TO MONITOR
[2019-07-11] MEDS ORDERED: POTASSIUM CHLORIDE 10 MEQ TABER PO SCH (14:00)
[2019-07-11] MEDS: MORPHINE SULFATE 2 MG/ML SYR IVP PRN ×2 (14:24→19:32)
[2019-07-11] MEDS ORDERED: POTASSIUM CHLORIDE 40 MEQ, LIDOCAINE MPF 1% 25 MG in NACL 0.9% 250 ML IV SCH (14:30)
--- NOTE | 2019-07-11 15:15 | NUR ---
HOURLY ROUNDING. PT RESTING IN BED UPON ARRIVAL. ABLE TO MAKE NEEDS KNOWN. RESPIRATIONS EVEN AND UNLABORED WITH NO SOB OR RESPIRATORY DISTRESS. SKIN WARM AND DRY TO TOUCH. SAFETY MEASURES IN PLACE. WILL CONTINUE TO MONITOR
[2019-07-11 16:00] VITALS: BP 133/77
--- NOTE | 2019-07-11 19:15 | NUR ---
ENDORSED AT BEDSIDE TO NIGHTSHIFT NURSE. PT RESTING IN BED. RESPIRATIONS EVEN AND UNLABORED WITH NO SOB OR RESPIRATORY DISTRESS. PT IS STABLE.
--- NOTE | 2019-07-11 19:16 | NUR ---
REPORT RECEIVED FROM AM NURSE AT BEDSIDE. PT IN STABLE CONDITION. AAOX2-3. INTRODUCED SELF TO PT. BOARD UPDATED. PT HAS COMPLAINTS OF PAIN. WILL MEDICATE. NO SOB. AFEBRILE. PT IS ON BEDREST TO GO TO SNF FOR PT. IV SITE R FA 22G SL PATENT AND INTACT. SKIN WARM, DRY, AND NOT INTACT DUE TO BUTTOCKS WOUND AND AND BACK WOUND. DRESSINGS C/D/I. BED LOCKED IN LOW POSITION. CALL SEE WITHIN REACH. SAFETY PRECAUTION IN PLACE. ALL NEEDS MET AT THIS TIME.
--- NOTE | 2019-07-11 19:32 | NUR ---
MORPHINE GIVEN FOR 8/10 PAIN. PT TOLERATED WELL.
[2019-07-11 20:00] VITALS: BP 135/77
--- NOTE | 2019-07-11 20:08 | NUR ---
COLACE, HALDOL, AND KEPPRA CRUSHED AND GIVEN WITH PUDDING. HEPARIN GIVEN SUBQ. PT TOLERATED WELL.
--- NOTE | 2019-07-11 20:55 | NUR ---
PT COMPLAINS ABOUT A HEADACHE. ASKED IF SHE WANTS TYLENOL. PT REFUSED. WILL FOLLOW UP.
--- NOTE | 2019-07-11 21:49 | NUR ---
RECEIVED PT ON 2L NC WITH SP02 OF 98% AND A CLEAR DIMINISHED BREATH SOUNDS ON THE UPPER LOBES. NO RESPIRATORY DISTRESS NOTED AT THIS TIME. NO INDICATION FOR HHN PRN TX. WILL CONTINUE TO MONITOR PT.
--- NOTE | 2019-07-11 22:15 | NUR ---
PT IN BED TRYING TO SLEEP. NO S/S OF DISTRESS NOTED. WILL CONTINUE TO MONITOR.
--- NOTE | 2019-07-11 23:35 | NUR ---
NORCO GIVEN FOR 6/10 PAIN. PT TOLERATED WELL.
[2019-07-12] VITALS: BP 136/75
--- NOTE | 2019-07-12 01:15 | NUR ---
PT AWAKE AND ALERT BUT HAS EPISODES OF CONFUSION. PT SEEMS AGITATED. TOLD PATIENT WHAT TIME IT WAS SO SHE CAN GET SOME REST.
--- NOTE | 2019-07-12 02:45 | NUR ---
PT VERY AGITATED AND WANTS TO GO HOME. TOLD ME TO CALL HER TO COME PICK HER UP. DR. RENO IN TO SPEAK WITH PATIENT. TOLD HER THE PLAN WAS TO SEND HER TO [facility]. PT ASKED TO BE SEATED AT THE EDGE OF THE BED. HELPED HER AND TOLD HER TO BE VERY CAREFUL. PT SAT AT THE EDGE OF THE BED FOR 10 MINUTES AND HELPED HER BACK INTO BED.
[2019-07-12] MEDS: MORPHINE SULFATE 2 MG/ML SYR IVP PRN (03:49)
--- NOTE | 2019-07-12 03:49 | NUR ---
MORPHINE GIVEN FOR 8/10 LEG PAIN. PT TOLERATED WELL.
[2019-07-12 04:00] VITALS: BP 130/77
[2019-07-12] MEDS: HYDROcodone/APAP 5/325 MG 1 TAB TAB PO PRN (05:33)
--- NOTE | 2019-07-12 05:33 | NUR ---
NORCO GIVEN FOR 6/10 LEG PAIN. PT TOLERATED WELL.
--- NOTE | 2019-07-12 06:40 | NUR ---
PT SLEEPING COMFORTABLY BUT AROUSABLE. PT IN STABLE CONDITION.
--- NOTE | 2019-07-12 07:00 | NUR ---
RECEIVED REPORT FROM VOCATIONAL REHABILITATION SPECIALIST NURSE. PATIENT IS FULL CODE, NKA. PATIENT IS CONFUSED, AAOX1-2. FALL RISK PRECAUTIONS, YELLOW WRISTBAND APPLIED, SIGN AT DOOR, YELLOW SOCKS APPLIED. IV TO RIGHT FA 22G SALINE LOCK. PLAN IS TO DISCHARGE PATIENT TO SNF. CURRENTLY, PATIENT IS LAYING IN BED VERY CONFUSED. NO DISTRESS NOTED, NO OTHER COMPLAINTS. WILL FOLLOW UP AND CONTINUE WITH PLAN OF CARE FOR THE DAY.
[2019-07-12 08:00] VITALS: BP 160/90
[2019-07-12] MEDS ORDERED: KEP500 PO (08:53)
[2019-07-12] MEDS ORDERED: HAL1 PO (08:53)
[2019-07-12] MEDS ORDERED: ASCO-672 GT (08:53)
[2019-07-12] MEDS ORDERED: PIPE1PDS26 IV (08:54)
[2019-07-12] MEDS: HALOPERIDOL 1 MG TAB PO SCH (09:00)
[2019-07-12] MEDS: levETIRAcetam 500 MG TAB PO SCH (09:00)
[2019-07-12] MEDS: ASCORBIC ACID 500 MG/5 ML ORASYR GT SCH (09:00)
[2019-07-12] MEDS: DOCUSATE SODIUM 100 MG GELCAP PO SCH (09:00)
[2019-07-12] MEDS: FERROUS SULFATE 300 MG/5 ML UDC GT SCH (09:00)
[2019-07-12] MEDS: FAMOTIDINE 20 MG TAB PO SCH (09:00)
[2019-07-12] MEDS: ATORVASTATIN 20 MG TAB PO SCH (09:00)
--- NOTE | 2019-07-12 09:00 | NUR ---
PATIENT REFUSED ALL MORNING MEDICATION. PATIENT IS INCREASINGLY CONFUSED, DR SAWYER AWARE. PER DR SAWYER, PATIENT SHOULD NOT RECEIVE MORPHINE OR NORCO IT CAUSES MORE DELIRIUM. WILL ENDORSE THIS INFORMATION TO THE HEEL SPRAYER FIRST NURSE.
--- NOTE | 2019-07-12 10:30 | NUR ---
INFORMED OF TRANSFER TIME OF 1200 [place] [facility]. WILL F/U WITH DISCHARGE PAPERWORK
--- NOTE | 2019-07-12 10:47 | NUR ---
JAVY LEW REMAINED TO FOLLOW UP ON IMMUNIZATION STATUS BEFORE DISCHARGE.
--- NOTE | 2019-07-12 12:40 | NUR ---
PATIENT HAS BEEN DISCHARGED TO [facility]. AWARE. IV LINE REMAINED D/T CONTINUING IV ABX. TELE BOX REMOVED. PATIENT HAS BEEN TAKEN VIA GURNEY.
--- NOTE | 2019-07-12 12:50 | NUR ---
CALLED [facility], WAS TOLD THEY WOULD NEED TO CALL ME BACK TO GET REPORT
--- NOTE | 2019-07-12 15:41 | NUR ---
PATIENTS CAME UPSET THAT HE DIDN'T HAVE DISCHARGE MEDICATION. SHOWED PATIENT THE DC MEDICATION IN HIS PAPERWORK GIVEN PRIOR AND MADE HIM AN EXTRA COPY TO GIVE TO FACILITY [facility]. PATIENT EXPRESSED FRUSTRATION THAT THE FACILITY WAS TRYING TO CALL US HERE AND NO ONE IS ANSWERING. EXPLAINED TO PATIENT THAT WHEN I CALLED TO GIVE REPORT THE NURSE TOLD ME SHE WOULD CALL ME BACK AND HAS YET TO CALL BACK. PATIENT LEFT [facility] UPSET. [place] CHARGE NURSE PRESENT DURING ENCOUNTER.
--- NOTE | 2019-07-12 15:42 | NUR ---
CAME TO CHIEF ENGINEER [employer] A LIST OF DISCHARGE MEDICATIONS FOR YUNIOR COELLO. HE STATED THAT PATIENT DID NOT RECEIVE A LIST OF DISCHARGE MEDICATIONS, JAVY LEW, EXPLAINED MEDS BEFORE PATIENT WAS DISCHARGED AND PATIENT LEFT WITH A LIST OF MEDICATIONS. WAS UPSET AND SAID [facility] CALLED US BUT WE DID NOT GIVE INFORMATION. I EXPLAINED TO THE THAT JAVY LEW CALLED FOR REPORT BUT THEY WERE BUSY AND SAID THEY WILL CALL HER BACK. HE SAID NO, THEY ARE NOT BUSY, AND WE SHOULD GIVE INFORMATION AND NOT SAY WE WILL CALL THEM BACK. I EXPLAINED TO HIM THAT WE DID NOT TELL THEM TO CALL US BACK, YUN[facility] COELLO TOLD US THEY WILL CALL US BACK. HE WAS UPSET AND SAID I WILL TALK TO THE ELECTRIC MOTOR ASSEMBLER! I SAID I AM SORRY FOR THE MISCOMMUNICATION ASKED HIM IF HE WANTED ME TO ALL THE PERSON IN CHARGE. HE SAID NO AND LEFT WITH A NEW COPY FOR MEDICATIONS FOR YUNIOR COELLO.
--- NOTE | 2019-07-12 15:54 | NUR ---
SPOKE TO KIRAN AT [facility] AND GAVE REPORT ON PATIENT. ASKED IF SHE HAD ANY FURTHER QUESTIONS AND PROVIDED HER WITH A CALLBACK NUMBER TO CALL IF SHE NEEDED TO ASK ANYTHING ELSE REGARDING CARE OF THE PATIENT.
== END 2019-07-12 12:40 | DRG 207 ==
LOC: MED 03:23 → MIC 04:56 → MTU 07-05 20:05
PROVIDERS: ADMIT General Practice; ATTEND General Practice
PROC: 5A1955Z Respiratory Ventilation, Greater than 96 Consecutive Hours (ICD-10-PCS; principal; 2019-06-30)
PROC: 02HV33Z Insertion of Infusion Device into Superior Vena Cava, Percutaneous Approach (ICD-10-PCS; 2019-06-30)
PROC: B548ZZA Ultrasonography of Superior Vena Cava, Guidance (ICD-10-PCS; 2019-06-30)
PROC: 0W9930Z Drainage of Right Pleural Cavity with Drainage Device, Percutaneous Approach (ICD-10-PCS; 2019-06-30)
PROC: 0BH17EZ Insertion of Endotracheal Airway into Trachea, Via Natural or Artificial Opening (ICD-10-PCS; 2019-06-30)
PROC: 4A00X4Z Measurement of Central Nervous Electrical Activity, External Approach (ICD-10-PCS; 2019-07-01)
PROC: 0WP9X0Z Removal of Drainage Device from Right Pleural Cavity, External Approach (ICD-10-PCS; 2019-07-07)
DX: J69.0 Pneumonitis due to inhalation of food and vomit (principal); G93.41 Metabolic encephalopathy; E43 Unspecified severe protein-calorie malnutrition; J96.01 Acute respiratory failure with hypoxia; J93.0 Spontaneous tension pneumothorax; G61.81 Chronic inflammatory demyelinating polyneuritis; K50.90 Crohn's disease, unspecified, without complications; N39.0 Urinary tract infection, site not specified; E87.0 Hyperosmolality and hypernatremia; J98.11 Atelectasis; G40.901 Epilepsy, unspecified, not intractable, with status epilepticus; B96.20 Unspecified Escherichia coli [E. coli] as the cause of diseases classified elsewhere; E78.00 Pure hypercholesterolemia, unspecified; E87.6 Hypokalemia; H70.91 Unspecified mastoiditis, right ear; E83.42 Hypomagnesemia; E78.5 Hyperlipidemia, unspecified; E83.39 Other disorders of phosphorus metabolism; G47.30 Sleep apnea, unspecified; G89.29 Other chronic pain; J44.9 Chronic obstructive pulmonary disease, unspecified; D50.9 Iron deficiency anemia, unspecified; F28 Other psychotic disorder not due to a substance or known physiological condition; E87.8 Other disorders of electrolyte and fluid balance, not elsewhere classified; Z90.710 Acquired absence of both cervix and uterus; Z79.899 Other long term (current) drug therapy; Z68.27 Body mass index [BMI] 27.0-27.9, adult
CPT/HCPCS: 31500; 36415; 36556; 36600; 51702; 70450; 71045; 71275; 80048; 80053; 80156; 80184; 80185; 80305; 81001; 82040; 82140; 82150; 82550; 82553; 82607; 82728; 82746; 82803; 83036; 83540; 83605; 83690; 83735; 83880; 84100; 84443; 84484; 84703; 85025; 85045; 85379; 85384; 85610; 85730; 86704; 86706; 86708; 86709; 86803; 86886; 86900; 86901; 87040; 87070; 87081; 87086; 87186; 87205; 87340; 87804; 89220; 92526; 92610; 93005; 94003; 94640; 96365; 96367; 96368; 96375; 97110; 97112; 97161-GP; 97530; 99291; 99292; G0480; G0482; J0330; J1644; J1953; J2001; J2060; J2270; J2543; J2704; J2916; J3370; J3475; J3480; J3490; J7030; J7042; J7060; J7620; Q0092; Q9967